=== PATIENT | male | born 1950 | race Two or more races ===

== ENCOUNTER → 2016-12-13 | Day surgery (SDC) | payer MEDICARE ==
--- NOTE | 2016-12-09 21:06 | HP ---
ADMITTING HISTORY AND PHYSICAL: DATE OF ADMISSION: 12/13/16 ADMITTING DIAGNOSES: 1. Hematuria. 2. Calculus, left proximal ureter. 3. Renal calculi. PLANNED PROCEDURE: Left retrograde, left stent insertion, possible ureteroscopy (possibly to be followed in the near future by lithotripsy). SURGEON: Dr. Mcpherson. HISTORY OF PRESENT ILLNESS: Nir Victor is a 66-year-old gentleman who had recently relocated to [place] from [place]. He had an evaluation for gross hematuria in the summer of 2015 in [place] [address] a CT scan and a cystoscopy. On CT scan at that time, he was noted to have nonobstructing bilateral renal calculi. 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 A sonogram was performed which revealed a 9.4-mm calculus in the proximal left ureter with left hydronephrosis and multiple bilateral renal calculi. PAST MEDICAL HISTORY: 1. Significant for HIV positivity. 2. Depression. 3. High cholesterol. PAST SURGICAL HISTORY: Significant for appendectomy and bilateral inguinal hernia repair. MEDICATIONS: On admission: 1. Abacavir 600 mg. 2. Lamivudine 300 mg 1 tablet daily. 3. Amlodipine 5 mg daily. 4. Bupropion 100 mg daily. 5. Epzicom 1 tablet daily. 6. Escitalopram 20 mg daily. 7. Fenofibrate 140 mg daily. 8. Nevirapine 200 mg 2 tablets daily. 9. NicoDerm patch. 10. Ranitidine 150 mg twice a day. 11. Simvastatin 40 mg daily. 12. Tamsulosin 0.4 mg daily. 13. Zetia 10 mg daily. ALLERGIES: No known drug allergies. SOCIAL HISTORY: Smoking history, he has a [id number] history and just quit about a month ago. PHYSICAL EXAMINATION GENERAL: Reveals a pleasant, middle-aged gentleman. VITAL SIGNS: Blood pressure is 160/92, pulse 71 per minute, oxygen saturation 98% on room air. LUNGS: Clear bilaterally. CARDIOVASCULAR: Regular rate and rhythm. S1, S2. ABDOMEN: Soft with mild left flank tenderness. IMPRESSION: A 66-year-old gentleman with a partially obstructing large calculus in the left proximal ureter and additional bilateral renal calculi. PLAN: Planned procedure is left retrograde, left stent insertion, possible ureteroscopy (possibly to be followed by shock wave lithotripsy in the near future). CC: Dr. Guzman; Dr. Wilfred Vargas; Dr. Mcpherson * [id number]/[facility] #: [id number] [facility]
[~2016-12-13] MED LIST: Buffered Lidocaine 1% SYR 3ML* 3 ML/SYR SYRINGE INTRADERM ONE; Chloroprocaine 2%* 20 ML VIAL ONE; Dexamethasone IV* 4 MG/ML 1 ML (4 MG) IV SLOW PU ONE; Dexamethasone IV* 4 MG/ML 1 ML (4 MG) ONE; Famotidine IV* 10 MG/ML 2 ML (20 mg) IV ONE; Famotidine IV* 10 MG/ML 2 ML (20 mg) ONE; Iohexol 180 (CONTRAST) 10 ML SDV IV ONE; Midazolam* 1 MG/ML 5 ML VIAL (5 MG) ONE; Ondansetron INJ* 2 MG/ML VIAL IV PRN; Ondansetron INJ* 2 MG/ML VIAL ONE; Propofol* 10 MG/ML 20 ML BTL IV PUSH ONE; cefTRIAXone(*) 2 GM ADDV.VIAL IVPB ONE; fentaNYL* 50 MCG/ML 2 ML VIAL (100 MCG VIAL) IV PRN; fentaNYL* 50 MCG/ML 2 ML VIAL (100 MCG VIAL) ONE; oxyCODONE/Acetamin 5/325 MG* TAB PO PRN
--- NOTE | 2016-12-13 11:14 | OP ---
DATE OF OPERATION: 12/13/2016 - [facility] DATE OF : 1950 - AGE: 66-year-old male. SURGEON: Dr. Eric Mcpherson. ANESTHESIOLOGIST: Dr. Potts. ANESTHESIA: Spinal. PRE-OP DIAGNOSIS: 1. Left hydronephrosis. 2. Calculus left proximal ureter. 3. Prostate enlargement. POST-OP DIAGNOSIS: 1. Left hydronephrosis. 2. Calculus left proximal ureter. 3. Prostate enlargement. OPERATIVE PROCEDURE: Cystoscopy, left retrograde pyelogram, left ureteral calculus manipulation and left stent insertion. STENT USED: 6 Cameroonian stent left ureter. INDICATIONS: Nir Victor is a 66-year-old gentleman who was evaluated and noted to have a 9 mm calculus in the proximal left ureter with left hydronephrosis. POSTOPERATIVE CONDITION: Stable. DESCRIPTION OF PROCEDURE: After induction of spinal anesthesia, the patient was placed in the dorsal lithotomy position. Sequential compression devices were in place and functioning. Initial cystoscopy reveal two soft strictures in the bulbar urethra which were easily dilated. The prostate is moderately enlarged and obstructing. The bladder was examined and was unremarkable. Left retrograde pyelogram revealed fullness of the left collecting system. The open ended catheter was advanced to the level of the renal pelvis and the calculus was manipulated proximally. A 6 Cameroonian stent was introduced and positioned under fluoroscopic monitoring with good proximal and distal positioning obtained. A 16 Cameroonian Holland was placed for temporary bladder drainage. The patient tolerated the procedure satisfactorily and was transferred back to the recovery area in stable condition. CC: Dr. Guzman * [id number]/[facility] #: [id number] [facility]
[2016-12-13 12:04] VITALS: BP 121/70
--- NOTE | 2016-12-13 13:48 | RAD ---
Indication: Left hydronephrosis. Fluoroscopic services provided for referring physician. Approximately 9 seconds of fluoroscopy time was used. Left ureteral stent is placed. IMPRESSION: Left ureteral stent is placed.
--- NOTE | 2016-12-13 14:02 | RAD ---
Indication: Postop retrograde and LEFT ureteral stent placement. Comparison: Intraoperative spot image of the same date. Technique: Supine abdomen Report: LEFT ureteral stent in place. Typical partial obscuration of the renal fossa due to bowel contents. No visualized stones at level of the renal fossa or along the course of the ureters. Unremarkable paraspinal soft tissue contours. Healed RIGHT fifth, sixth, and seventh rib fractures. IMPRESSION: LEFT ureteral stent in place.
== END | disposition home or self-care (01) ==
LOC: OR 08:34
PROVIDERS: ATTEND Urology
DX: N13.2 Hydronephrosis with renal and ureteral calculous obstruction (principal); Z21 Asymptomatic human immunodeficiency virus [HIV] infection status; F17.210 Nicotine dependence, cigarettes, uncomplicated; I10 Essential (primary) hypertension
CPT/HCPCS: 74000; 74420; C1876; J0696; J1100; J2250; J2400; J2405; J2704; J3010

== ENCOUNTER 2016-12-20 13:07 | Day surgery (SDC) | payer MEDICARE ==
[~2016-12-20 13:07] MED LIST changes: -Chloroprocaine 2%* 20 ML VIAL ONE; -Dexamethasone IV* 4 MG/ML 1 ML (4 MG) ONE; +DiMENhydriNATE IV* 50 MG/ML VIAL IV PUSH PRN; -Famotidine IV* 10 MG/ML 2 ML (20 mg) ONE; -Iohexol 180 (CONTRAST) 10 ML SDV IV ONE; +Midazolam* 1 MG/ML 2 ML VIAL (2 MG) ONE; -Midazolam* 1 MG/ML 5 ML VIAL (5 MG) ONE; -Ondansetron INJ* 2 MG/ML VIAL ONE; +PROCHLORPERAZINE INJ 5 MG/ML 2 ML VIAL IV PRN; -Propofol* 10 MG/ML 20 ML BTL IV PUSH ONE; -cefTRIAXone(*) 2 GM ADDV.VIAL IVPB ONE; -oxyCODONE/Acetamin 5/325 MG* TAB PO PRN
[2016-12-20] MEDS ORDERED: Dexamethasone IV* 4 MG/ML 1 ML (4 MG) ONE (13:25)
[2016-12-20] MEDS ORDERED: cefTRIAXone(*) 2 GM ADDV.VIAL IVPB ONE (13:26)
[2016-12-20] MEDS ORDERED: Famotidine IV* 10 MG/ML 2 ML (20 mg) ONE (13:26)
--- NOTE | 2016-12-20 13:40 | RAD ---
INDICATION: Shockwave lithotripsy. COMPARISON: Comparison is made with a prior KUB study from December 13, 2016. TECHNIQUE: Frontal supine films of the abdomen were obtained. FINDINGS: The small bowel and colon appear nondistended. There is a double-J stent catheter present on the left side. There are several small calcifications which project over the lower pole of the left kidney measuring up to 5 mm in size consistent with renal calculi. IMPRESSION: LEFT RENAL CALCULI, STATUS POST DOUBLE-J STENT CATHETER PLACEMENT.
[2016-12-20] MEDS ORDERED: fentaNYL* 50 MCG/ML 5 ML VIAL (250 MCG VIAL) ONE (15:28)
[2016-12-20] MEDS ORDERED: Furosemide IV* 10 MG/ML 2 ML VIAL (20 MG) ONE (15:34)
[2016-12-20] MEDS ORDERED: Ondansetron INJ* 2 MG/ML VIAL ONE (15:34)
[2016-12-20] MEDS ORDERED: Propofol* 10 MG/ML 20 ML BTL IV PUSH ONE (15:34)
[2016-12-20] MEDS ORDERED: Lidocaine 2% PF* 10 ML AMP ONE (15:34)
[2016-12-20] MEDS ORDERED: Ketorolac INJ* 30 MG/ML 1 ML VIAL ONE (15:34)
[2016-12-20 17:04] VITALS: BP 126/82
--- NOTE | 2016-12-21 09:52 | OP ---
DATE OF OPERATION: 12/20/16 - [facility] DATE OF : [birth year] - AGE: 66 years, male. SURGEON: Eric Mcpherson MD. ANESTHESIOLOGIST: Dr. Umana. ANESTHESIA: General. PRE-OP DIAGNOSIS: Left renal calculi. POST-OP DIAGNOSIS: Left renal calculi. OPERATIVE PROCEDURE: Shock wave lithotripsy of left renal calculi. COMPLICATIONS: None. POSTOPERATIVE CONDITION: Stable. INDICATIONS: Nir Victor is a 66-year-old gentleman who was evaluated and noted to have a calculus in the proximal left ureter with left hydronephrosis. He had undergone urgent left stent insertion and is now being brought in for lithotripsy. DESCRIPTION OF PROCEDURE: After induction of general anesthesia, the patient was placed on the lithotripsy table in supine position. There were two calculi in the lower pole area of the left kidney now which were visualized on fluoroscopy, and shockwave lithotripsy was commenced at a rate of 90 shocks per minute. After the initial 300 shocks, there was a pause in lithotripsy for several minutes in an effort to minimize any potential trauma to the kidney. Lithotripsy was then resumed and periodic imaging revealed good localization and fragmentation. A total of 1200 shocks were administered. The patient tolerated the procedure satisfactorily, and was transferred back to the recovery area in stable condition. CC: Dr. Guzman * [id number]/[facility] #: [id number] [facility]
== END 2016-12-20 17:27 | disposition home or self-care (01) ==
LOC: OR 13:07
PROVIDERS: ATTEND Urology
DX: N13.2 Hydronephrosis with renal and ureteral calculous obstruction (principal); Z87.891 Personal history of nicotine dependence; I10 Essential (primary) hypertension; Z21 Asymptomatic human immunodeficiency virus [HIV] infection status; G47.33 Obstructive sleep apnea (adult) (pediatric)
CPT/HCPCS: 74000; J0696; J1100; J1885; J1940; J2001; J2250; J2405; J2704; J3010

== ENCOUNTER 2017-05-20 13:48 | Emergency (ER) | payer MEDICARE ==
[2017-05-20] MEDS ORDERED: NS 0.9% 1000 ML* 1,000 ML IV ONE (16:05)
--- NOTE | 2017-05-20 16:49 | RAD ---
INDICATION: Fever, fatigue. Former tobacco use. Chronic obstructive pulmonary disease. COMPARISON: September 01, 2016 TECHNIQUE: Dual energy PA and routine lateral views of the chest were obtained. REPORT: Mild prominence of interstitial markings. Mildly elevated lung volumes. No focal pulmonary lesion, compelling alveolar consolidation, pleural effusion, pneumothorax. The heart, pulmonary vasculature, and mediastinal contours are unremarkable. Healed fractures of the RIGHT sixth and seventh ribs noted. No acute rib fracture evident. IMPRESSION: Stigmata of obstructive lung disease. No acute pulmonary or cardiac process evident.
[2017-05-20 18:06] VITALS: BP 137/86
[2017-05-20 18:48] LABS: Hematocrit 38 % (42-52); Mean Corpuscular HGB Conc 34 g/dl (31-36); Mean Corpuscular Hemoglobin 34 pg (27-31); Mean Corpuscular Volume 99 fL (80-94); Mean Platelet Volume 9 um3 (7.4-10.4); Red Blood Count 3.85 10^6/ul (4.0-5.4); Red Cell Distribution Width 14 % (10.5-15); White Blood Count 7.5 10^3/ul (3.5-10.8)
[2017-05-20 18:50] LABS: Comments Flag Yes
[2017-05-20 18:51] LABS: Add Diff/Slide Review? Slide Review Added
[2017-05-20 18:58] LABS: Albumin 3.7 g/dL (3.2-5.2); C Reactive Protein 139.36 mg/L (< 5.00); Calcium 8.9 mg/dL (8.6-10.3); EGFR African American 80.8 (>60); EGFR Non-African American 62.8 (>60); Globulin 2.4 g/dL (2-4); Potassium 3.9 mmol/L (3.5-5.0); Total Bilirubin 0.7 mg/dL (0.2-1.0); Total Protein 6.1 g/dL (6.4-8.9)
[2017-05-20 21:06] LABS: Erythrocyte Sed Rate 50 mm/Hr (0-40)
--- NOTE | 2017-05-21 09:57 | UC ---
Progress - Progress Note Progress Note: PLS CALL PT. LABS HAVE NON SPECIFIC ABNORMALITIES INCLUDING ELEVATED MARKERS OF INFLAMMATION, ELEVATED LFTS, BLOOD COUNT ABNORMALITIES. IF PT NOT FEELING BETTER WOULD RECOMMEND GOING TO ER. IF STABLE OR BETTER FOLLOW-UP WITH PCP EARLY NEXT WEEK FOR RE-EVAL. - NALLELY BYRNE MD
--- NOTE | 2017-05-25 07:18 | ED ---
Progress - Progress Note Progress Note: 7:17am Pt with + lyme serology - awaiting western blot results Pt was started on Doxy for lyme dx 05/21/17 #40 tabs recommend calling after WB results Course/Dx - Diagnoses Provider Diagnoses: Lyme disease
[2017-05-25 16:30] LABS: Lyme Disease IgG Ab WB Negative (Negative)
--- NOTE | 2017-05-25 21:18 | ED ---
Progress - Progress Note Progress Note: 7:17am Pt with + lyme serology - awaiting western blot results Pt was started on Doxy for lyme dx 05/21/17 #40 tabs recommend calling after WB results 05/25/17 9:17 PM WESTERN BLOT NEGATIVE. CONTINUE ABX AND FOLLOW UP WITH PCP. Course/Dx - Diagnoses Provider Diagnoses: Lyme disease
== END 2017-05-20 18:14 | disposition home or self-care (01) ==
LOC: UCEAST 13:48
DX: A69.20 Lyme disease, unspecified (principal); I10 Essential (primary) hypertension; J44.9 Chronic obstructive pulmonary disease, unspecified; Z87.891 Personal history of nicotine dependence
CPT/HCPCS: 36415; 71020; 80053; 81003; 85025; 85652; 86140; 86617; 86618; 87086; 87502; 96360; 99211; G0463

== ENCOUNTER 2017-05-21 13:54 | Emergency (ER) | payer MEDICARE ==
[2017-05-21] MEDS ORDERED: NS 0.9% 1000 ML* 1,000 ML IV ONE (15:53)
[2017-05-21 18:04] LABS: Hematocrit 36 % (42-52); Hemoglobin 12.1 g/dl (14.0-18.0); Mean Corpuscular HGB Conc 33 g/dl (31-36); Mean Corpuscular Hemoglobin 33 pg (27-31); Mean Corpuscular Volume 100 fL (80-94); Mean Platelet Volume 9 um3 (7.4-10.4); Red Blood Count 3.63 10^6/ul (4.0-5.4); Red Cell Distribution Width 14 % (10.5-15); White Blood Count 7.8 10^3/ul (3.5-10.8)
[2017-05-21 18:13] LABS: Albumin 3.4 g/dL (3.2-5.2); BUN/Creatinine Ratio 17.4 (8-20); C Reactive Protein 134.82 mg/L (< 5.00); Calcium 8.9 mg/dL (8.6-10.3); EGFR African American 86.8 (>60); EGFR Non-African American 67.5 (>60); Globulin 2.8 g/dL (2-4); Potassium 3.9 mmol/L (3.5-5.0); Total Bilirubin 0.6 mg/dL (0.2-1.0); Total Protein 6.2 g/dL (6.4-8.9)
[2017-05-21 18:15] LABS: Troponin I 0.01 ng/mL (<0.04)
[2017-05-21] MEDS ORDERED: DOXYcycline CAP(*) 100 MG PO ONE (18:21)
[2017-05-21 18:43] VITALS: BP 137/87
--- NOTE | 2017-05-21 18:50 | ED ---
Jose J Malhotra Auryana, scribed for Alexander Santo MD on 05/21/17 at 1552 . Complex/Multi-Sys Presentation - HPI Summary HPI Summary: 67 year old male presents with general illness for 1 week and rash starting today. He also c/o of "red-wine" urine yesterday at [facility]. He reports fever, chills, diaphoresis, malaise, diffuse myalgia, and decreased appetite. He denies any dizziness/lightheadedness, SOB, diarrhea, dysuria, U.T.I. symptoms, edema, and swollen lymph nodes. He reports possibility of tick bite but denies any tick removal. He denies any recent travel. Patient was advised to come to the ED yesterday due to abnormal labs - elevated LFTs and elevated inflammatory markers. PMHx is significant for HIV (+), HLD, and depression (on medication). - History Of Current Complaint Chief Complaint: EDWeakness Time Seen by Provider: 05/21/17 15:11 Hx Obtained From: Patient Onset/Duration: Gradual Onset, Lasting Weeks, Still Present Timing: Constant Severity Currently: Mild Severity Initially: Mild Associated Signs And Symptoms: Positive: Weakness - general, Decreased Oral Intake, Fever, Other - fever, chills, diaphoresis, malaise, diffuse myalgia, and decreased appetite. Negative: SOB, Cough, Chest Pain, Diarrhea Related History: Similar Episode/Diagnosed As: - Allergies/Home Medications Allergies/Adverse Reactions: Allergies Allergy/AdvReac Type Severity Reaction Status Date / Time No Known Allergies Allergy Verified 12/20/16 13:37 PMH/Surg Hx/FS Hx/Imm Hx Cardiovascular History: Reports: Hx Hypertension - ON MED Respiratory History: Reports: Hx Chronic Obstructive Pulmonary Disease (COPD) - NOTED 08/2016, Hx Sleep Apnea - WORK UP 5-6 WEEKS AGO, AWAITING RESULTS, Other Respiratory Problems/Disorders - POSSIBLE SLEEP APNEA Denies: Hx Asthma GI History: Reports: Hx Gastroesophageal Reflux Disease - ON MED, Hx Hiatal Hernia History: Reports: Hx Kidney Stones - CURRENTLY AND HX OF APRIL 2016,LEFT STENT 12/13/16 Sensory History: Reports: Hx Contacts or Glasses - GLASSES Denies: Hx Hearing Aid Opthamlomology History: Reports: Hx Contacts or Glasses - GLASSES Psychiatric History: Reports: Hx Anxiety - ON MED, Hx Depression - ON MED - Surgical History Surgery Procedure, Year, and Place: 1991 BILATERAL INGUINAL HERNIA REPAIR - [facility]. 1997 APPENDECTOMY - [place]. 11/2016 LEFT KIDNEY STONR STENT INSERTION. huiv positive Hx Anesthesia Reactions: No Infectious Disease History: No Infectious Disease History: Reports: Hx Hepatitis - HEP B OVER 30 YRS AGO, CARLA REPORTS CLEARED TO PT Denies: Hx Clostridium Difficile, Hx Human Immunodeficiency Virus (HIV), Hx of Known/Suspected MRSA, Hx Shingles, Hx Tuberculosis, Hx Known/Suspected VRE, Hx Known/Suspected VRSA, History Other Infectious Disease, Traveled Outside the [place] in Last 30 Days - Family History Known Family History: Positive: Cardiac Disease - [place] ( father), "heart problems" (mother), Respiratory Disease - COPD (MOTHER), Blood Disorder - LEUKEMIA (BROTHER), Other - COLON CANCER (FATHER) - Social History Alcohol Use: Rare Alcohol Amount: 1-3 DRINKS EVERY FEW MONTHS Substance Use Type: Reports: None Smoking Status (MU): Former Smoker Type: Cigarettes Amount Used/How Often: 1.5 PPD FOR 49 YEARS Length of Time of Smoking/Using Tobacco: 49 YRS Have You Smoked in the Last Year: Yes Review of Systems Positive: Fever, Chills, Fatigue, Skin Diaphoresis, Other - malaise Eyes: Negative ENT: Negative Cardiovascular: Negative Negative: Chest Pain Respiratory: Negative Negative: Shortness Of Breath, Cough Gastrointestinal: Negative Negative: Diarrhea Genitourinary: Negative Positive: no symptoms reported. Negative: dysuria, hematuria Positive: Myalgia - diffuse Positive: Rash Neurological: Negative All Other Systems Reviewed And Are Negative: Yes Physical Exam - Summary Physical Exam Summary: The patient is well-nourished in no acute distress and in no acute pain. The skin is warm and dry and skin color reflects adequate perfusion. There is a diffuse macular rash on the trunk and the bilateral arms. The rash is warm and some have a clearing center. HEENT: The head is normocephalic and atraumatic. The pupils are equal and reactive. The conjunctivae are clear and without drainage. Nares are patent and without drainage. Mouth reveals moist mucous membranes and the throat is without erythema and exudate. The external ears are intact. The ear canals are patent and without drainage. The tympanic membranes are intact. Neck is supple with full range of motion and non-tender. There are no carotid bruits. There is no neck vein distension. No cervical lymphadenopathy. Respiratory: Chest is non-tender. Lungs are clear to auscultation and breath sounds are symmetrical and equal. Cardiovascular: Heart is regular rate and rhythm. There is no murmur or rub auscultated. There is no peripheral edema and pulses are symmetrical and equal. Abdomen: The abdomen is soft and non-tender. There are normal bowel sounds heard in all four quadrants and there is no organomegaly palpated. Musculoskeletal: There is no back pain noted. Extremities are non-tender with full range of motion. There is good capillary refill. There is no peripheral edema or calf tenderness elicited. Neurological: Patient is alert and oriented to person, place and time. The patient has symmetrical motor strength in all four extremities. Cranial nerves are grossly intact. Deep tendon reflexes are symmetrical and equal in all four extremities. Psychiatric: The patient has an appropriate affect and does not exhibit any anxiety or depression. Triage Information Reviewed: Yes Vital Signs On Initial Exam: Initial Vitals Temp Pulse Resp BP Pulse Ox 99.5 F 92 17 137/81 96 05/21/17 14:17 05/21/17 14:17 05/21/17 14:17 05/21/17 14:17 05/21/17 14:17 Vital Signs Reviewed: Yes - Elena Coma Scale Coma Scale Total: 15 Diagnostics - Vital Signs Vital Signs Temp Pulse Resp BP Pulse Ox 05/21/17 15:00 93 125/75 93 05/21/17 14:39 96 98 05/21/17 14:37 128/78 05/21/17 14:17 99.5 F 92 17 137/81 96 - Laboratory Lab Results: Lab Results 05/21/17 05/21/17 05/21/17 Range/Units 17:45 17:45 17:45 WBC 7.8 (3.5-10.8) 10^3/ul RBC 3.63 L (4.0-5.4) 10^6/ul Hgb 12.1 L (14.0-18.0) g/dl Hct 36 L (42-52) % MCV 100 H (80-94) fL MCH 33 H (27-31) pg MCHC 33 (31-36) g/dl RDW 14 (10.5-15) % Plt Count 106 L (150-450) 10^3/ul MPV 9 (7.4-10.4) um3 Neut % (Auto) 64.5 (38-83) % Lymph % (Auto) 22.9 L (25-47) % Lagrange % (Auto) 9.0 (1-9) % Eos % (Auto) 2.6 (0-6) % Baso % (Auto) 1.0 (0-2) % Absolute Neuts (auto) 5.0 (1.5-7.7) 10^3/ul Absolute Lymphs (auto) 1.8 (1.0-4.8) 10^3/ul Absolute Monos (auto) 0.7 (0-0.8) 10^3/ul Absolute Eos (auto) 0.2 (0-0.6) 10^3/ul Absolute Basos (auto) 0.1 (0-0.2) 10^3/ul Absolute Nucleated RBC 0.01 10^3/ul Nucleated RBC % 0.1 INR (Anticoag Therapy) 1.04 (0.89-1.11) Sodium 137 (133-145) mmol/L Potassium 3.9 (3.5-5.0) mmol/L Chloride 109 (101-111) mmol/L Carbon Dioxide 22 (22-32) mmol/L Anion Gap 6 (2-11) mmol/L BUN 19 (6-24) mg/dL Creatinine 1.09 (0.67-1.17) mg/dL Est GFR ( Amer) 86.8 (>60) Est GFR (Non-Af Amer) 67.5 (>60) BUN/Creatinine Ratio 17.4 (8-20) Glucose 101 H (70-100) mg/dL Lactic Acid (0.5-2.0) mmol/L Calcium 8.9 (8.6-10.3) mg/dL Total Bilirubin 0.60 (0.2-1.0) mg/dL AST 61 H (13-39) U/L ALT 115 H (7-52) U/L Alkaline Phosphatase 144 H (34-104) U/L Troponin I 0.01 (<0.04) ng/mL C-Reactive Protein 134.82 H (< 5.00) mg/L Total Protein 6.2 L (6.4-8.9) g/dL Albumin 3.4 (3.2-5.2) g/dL Globulin 2.8 (2-4) g/dL Albumin/Globulin Ratio 1.2 (1-3) 05/21/17 Range/Units 17:45 WBC (3.5-10.8) 10^3/ul RBC (4.0-5.4) 10^6/ul Hgb (14.0-18.0) g/dl Hct (42-52) % MCV (80-94) fL MCH (27-31) pg MCHC (31-36) g/dl RDW (10.5-15) % Plt Count (150-450) 10^3/ul MPV (7.4-10.4) um3 Neut % (Auto) (38-83) % Lymph % (Auto) (25-47) % Lagrange % (Auto) (1-9) % Eos % (Auto) (0-6) % Baso % (Auto) (0-2) % Absolute Neuts (auto) (1.5-7.7) 10^3/ul Absolute Lymphs (auto) (1.0-4.8) 10^3/ul Absolute Monos (auto) (0-0.8) 10^3/ul Absolute Eos (auto) (0-0.6) 10^3/ul Absolute Basos (auto) (0-0.2) 10^3/ul Absolute Nucleated RBC 10^3/ul Nucleated RBC % INR (Anticoag Therapy) (0.89-1.11) Sodium (133-145) mmol/L Potassium (3.5-5.0) mmol/L Chloride (101-111) mmol/L Carbon Dioxide (22-32) mmol/L Anion Gap (2-11) mmol/L BUN (6-24) mg/dL Creatinine (0.67-1.17) mg/dL Est GFR ( Amer) (>60) Est GFR (Non-Af Amer) (>60) BUN/Creatinine Ratio (8-20) Glucose (70-100) mg/dL Lactic Acid 0.7 (0.5-2.0) mmol/L Calcium (8.6-10.3) mg/dL Total Bilirubin (0.2-1.0) mg/dL AST (13-39) U/L ALT (7-52) U/L Alkaline Phosphatase (34-104) U/L Troponin I (<0.04) ng/mL C-Reactive Protein (< 5.00) mg/L Total Protein (6.4-8.9) g/dL Albumin (3.2-5.2) g/dL Globulin (2-4) g/dL Albumin/Globulin Ratio (1-3) Result Diagrams: 05/21/17 17:45 05/21/17 17:45 Lab Statement: Any lab studies that have been ordered have been reviewed, and results considered in the medical decision making process. - EKG 15:43 EKG Interpretation: sinus rhythm @ 91 bpm, normal axis, poor airway progression , no STEMI. Re-Evaluation - Re-Evaluation First Eval Re-Evaluation Time: 18:18 - discussed results and plan of action Change: Unchanged Comment: recheecked rash was darker and more evident of EM with clearing center. the rash was more confluent. there was no necrotic center or vesicles. Complex Multi-Symp Course/Dx Assessment/Plan: 67 year old male presents with general illness for 1 week and rash starting today. He also c/o of "red-wine" urine yesterday at [facility]. He reports fever, chills, diaphoresis, malaise, diffuse myalgia, and decreased appetite. He denies any dizziness/lightheadedness, SOB, diarrhea, dysuria, U.T.I. symptoms, edema, and swollen lymph nodes. He reports possibility of tick bite but denies any tick removal. He denies any recent travel. Patient was advised to come to the ED yesterday due to abnormal labs - elevated LFTs and elevated inflammatory markers. PMHx is significant for HIV (+), HLD, and depression (on medication). In ED course, patient was given IV fluids. EKG shows sinus rhythm @ 91 bpm, normal axis, poor airway progression, no STEMI. Blood work shows RBC 3.63, Hgb 12.1, Hct 36, platelet count 106, INR 1.04, glucose 101, lactic acid 0.7, AST 61, ALT 115, Alk. Phos. 144, troponin 0.01, CRP 134.82, and total protein 6.2. On re-evaluation, blood work and EKG were discussed. Patient will be discharge with follow with PCP and doxycycline. Patient is agreeable with plan. Dx: lyme disease. - Diagnoses Differential Diagnoses/HQI/PQRI: Sepsis Provider Diagnoses: Lyme disease Discharge - Discharge Plan Condition: Stable Disposition: HOME Prescriptions: DOXYcycline CAP(*) [DOXYcycline 100MG CAP(*)] 100 mg PO BID #40 cap Patient Education Materials: Lyme Disease (ED), Doxycycline (By mouth) Referrals: Wes Guzman MD [Primary Care Provider] - 2 Days The documentation as recorded by the Jose J gant Auryana accurately reflects the service I personally performed and the decisions made by Gal ponce Drew, MD.
== END 2017-05-21 18:40 | disposition home or self-care (01) ==
LOC: ED 13:54
DX: A69.20 Lyme disease, unspecified (principal); F41.9 Anxiety disorder, unspecified; F32.9 Major depressive disorder, single episode, unspecified; K21.9 Gastro-esophageal reflux disease without esophagitis; E78.5 Hyperlipidemia, unspecified; B20 Human immunodeficiency virus [HIV] disease; J44.9 Chronic obstructive pulmonary disease, unspecified
CPT/HCPCS: 36415; 80053; 83605; 84484; 85025; 85610; 86140; 87040; 93005; 99282; A9270-GY

== ENCOUNTER 2017-06-29 17:16 | Emergency (ER) | payer MEDICARE ==
[2017-06-29 19:59] VITALS: BP 137/76
[2017-06-29] MEDS ORDERED: NS 0.9% 1000 ML* 1,000 ML IV ONE (20:23)
[2017-06-29 21:11] LABS: Hematocrit 43 % (42-52); Hemoglobin 14.7 g/dl (14.0-18.0); Mean Corpuscular HGB Conc 34 g/dl (31-36); Mean Corpuscular Hemoglobin 34 pg (27-31); Mean Corpuscular Volume 99 fL (80-94); Mean Platelet Volume 9 um3 (7.4-10.4); Red Blood Count 4.37 10^6/ul (4.0-5.4); Red Cell Distribution Width 16 % (10.5-15); White Blood Count 6.1 10^3/ul (3.5-10.8)
[2017-06-29 21:24] LABS: Urine Bilirubin Negative (Negative); Urine Glucose Negative (Negative); Urine Nitrite Negative (Negative)
[2017-06-29 21:26] LABS: Albumin 3.9 g/dL (3.2-5.2); Calcium 9.6 mg/dL (8.6-10.3); EGFR African American 95.9 (>60); EGFR Non-African American 74.5 (>60); Globulin 2.9 g/dL (2-4); Potassium 3.8 mmol/L (3.5-5.0); Total Bilirubin 4.1 mg/dL (0.2-1.0); Total Protein 6.8 g/dL (6.4-8.9)
--- NOTE | 2017-06-29 21:29 | RAD ---
Indication: Abdominal pain. History of cholelithiasis. History of fatty infiltration of the liver. Comparison: June 20, 2017 ultrasound. Technique: RIGHT upper quadrant ultrasound. Report: Appropriate direction flow in the portal and hepatic veins. 16 cm liver is increased in echogenicity. Negative for focal hepatic lesions. Mild intrahepatic biliary dilatation similar to the prior exam. Dilated common bile duct measuring up to 12 mm. No ductal stones visualized. Adequately distended gallbladder with upper normal 4 mm wall is remarkable for biliary sludge and small stones. Negative for pericholecystic fluid. Negative for sonographic Estes's sign. The pancreas appears atrophic and is remarkable for duct dilatation measuring up to 0.9 cm proximally. No pancreatic head mass or calcification visualized. The pancreatic tail is largely obscured due to bowel gas. Negative for ascites. 11.0 x 5.1 x 4.8 cm RIGHT kidney is unremarkable. IMPRESSION: 1. Fatty infiltration of the liver. 2. No significant change in intra and extrahepatic biliary dilatation of uncertain etiology. No obstructing stone or lesion is conspicuous. 3. Cholelithiasis and biliary sludge without compelling secondary findings to suggest acute cholecystitis.
--- NOTE | 2017-06-29 22:12 | RAD ---
INDICATION: Midsternal chest pain. Weakness, abdominal pain. Diarrhea. COPD. Hiatal hernia. COMPARISON: May 20, 2017 TECHNIQUE: Dual energy PA and routine lateral views of the chest were obtained. REPORT: Minimal prominence of the interstitial markings without change. No alveolar consolidation or focal pulmonary lesion. Negative for pleural effusions or pneumothorax. The heart, pulmonary vasculature, and mediastinal contours are unremarkable. Negative for free air beneath the diaphragm. Healed RIGHT sixth rib fracture. IMPRESSION: Stigmata of probable chronic obstructive pulmonary disease. No acute cardiopulmonary process evident.
[2017-06-29] MEDS ORDERED: Iohexol 300* (CONTRAST) 10 ML SDV IV ONE (22:41)
--- NOTE | 2017-06-30 06:31 | ED ---
Ab Malhotra Rebecca, scribed for CheyennericardoVito on 06/29/17 at 2002 . Abdominal Pain/Male - HPI Summary HPI Summary: Pt is a 67 y/o M who presents to ED c/o abdominal pain for 2 weeks. Pain is diffuse and initially severe, though it is now moderate, ranked 4/10. Sx tyically aggravated by food, but presently alleviated by saltine crackers. Additionally c/o N/V and "creamy white stools." Denies edema. Pt reports that he was evaluated by his PCP last week where "multiple tests" were done and [facility] this afternoon where he gave a stool sample and blood work. Reports his PCP called 4 nights ago to give him blood results of elevated LFTs. PMHx Hepatitis B which was treated 40 years ago and he has since been cleared. Recent Dx of Lyme Disease for which he was on Doxycycline BID for 3 weeks. - History of Current Complaint Chief Complaint: EDAbdPain Stated Complaint: ABD PAIN Time Seen by Provider: 06/29/17 19:59 Hx Obtained From: Patient Onset/Duration: Lasting Weeks - 2 weeks, Still Present Severity Currently: Moderate Pain Intensity: 4 Pain Scale Used: 0-10 Numeric Location: Diffuse Aggravating Factor(s): Food Alleviating Factor(s): Other: - Saltine crackers [employer] Associated Signs And Symptoms: Positive: Nausea, Vomiting, Other - "Creamy white stools" - Allergies/Home Medications Allergies/Adverse Reactions: Allergies Allergy/AdvReac Type Severity Reaction Status Date / Time No Known Allergies Allergy Verified 12/20/16 13:37 PMH/Surg Hx/FS Hx/Imm Hx Cardiovascular History: Reports: Hx Hypertension - ON MED Respiratory History: Reports: Hx Chronic Obstructive Pulmonary Disease (COPD) - NOTED 08/2016, Hx Sleep Apnea - WORK UP 5-6 WEEKS AGO, AWAITING RESULTS, Other Respiratory Problems/Disorders - POSSIBLE SLEEP APNEA Denies: Hx Asthma GI History: Reports: Hx Gastroesophageal Reflux Disease - ON MED, Hx Hiatal Hernia History: Reports: Hx Kidney Stones - CURRENTLY AND HX OF APRIL 2016,LEFT STENT 12/13/16 Sensory History: Reports: Hx Contacts or Glasses - GLASSES Denies: Hx Hearing Aid Opthamlomology History: Reports: Hx Contacts or Glasses - GLASSES Psychiatric History: Reports: Hx Anxiety - ON MED, Hx Depression - ON MED - Surgical History Surgery Procedure, Year, and Place: 1991 BILATERAL INGUINAL HERNIA REPAIR - [facility]. 1997 APPENDECTOMY - [place]. 11/2016 LEFT KIDNEY STONR STENT INSERTION. huiv positive Hx Anesthesia Reactions: No Infectious Disease History: No Infectious Disease History: Reports: Hx Hepatitis - HEP B OVER 30 YRS AGO, CARLA REPORTS CLEARED TO PT Denies: Hx Clostridium Difficile, Hx Human Immunodeficiency Virus (HIV), Hx of Known/Suspected MRSA, Hx Shingles, Hx Tuberculosis, Hx Known/Suspected VRE, Hx Known/Suspected VRSA, History Other Infectious Disease, Traveled Outside the in Last 30 Days - Family History Known Family History: Positive: Cardiac Disease - [place] ( father), "heart problems" (mother), Respiratory Disease - COPD (MOTHER), Blood Disorder - LEUKEMIA (BROTHER), Other - COLON CANCER (FATHER) - Social History Alcohol Use: Rare Alcohol Amount: 1-3 DRINKS EVERY FEW MONTHS Substance Use Type: Reports: None Smoking Status (MU): Former Smoker Type: Cigarettes Amount Used/How Often: 1.5 PPD FOR 49 YEARS Length of Time of Smoking/Using Tobacco: 49 YRS Have You Smoked in the Last Year: Yes Review of Systems Positive: Abdominal Pain - Diffuse, Vomiting, Nausea, Other - "creamy white stools" Negative: Edema All Other Systems Reviewed And Are Negative: Yes Physical Exam - Summary Physical Exam Summary: Appearance: No pain distress Skin: warm, dry, jaundiced Head/face: normal Eyes: EOMI, MALLIKA ENT: normal Neck: supple, nontender Respiratory: CTA, breath sounds present Cardiovascular: RRR, pulses symmetrical Abdomen: tender in the RUQ and RLQ, soft Bowel: present Musculoskeletal: normal, strength/ROM intact Neuro: normal, sensory motor intact, A&Ox3 Triage Information Reviewed: Yes Vital Signs On Initial Exam: Initial Vitals Temp Pulse Resp BP Pulse Ox 98.7 F 87 20 150/86 96 06/29/17 17:30 06/29/17 17:30 06/29/17 17:30 06/29/17 17:30 06/29/17 17:30 Vital Signs Reviewed: Yes - [place] Coma Scale Coma Scale Total: 15 Diagnostics - Vital Signs Vital Signs Temp Pulse Resp BP Pulse Ox 06/29/17 19:54 98.3 F 73 18 137/76 96 06/29/17 17:30 98.7 F 87 20 150/86 96 - Laboratory Result Diagrams: 06/29/17 21:00 06/29/17 21:00 Lab Statement: Any lab studies that have been ordered have been reviewed, and results considered in the medical decision making process. - Radiology CXR Xray Interpretation: No Acute Changes - Stigmata of probable chronic obstructive pulmonary disease. No acute cardiopulmonary process evident. ED physician reviewed radiology report and agrees. Radiology Interpretation Completed By: Radiologist - CT CT Abd/Pel CT Interpretation: Positive (See Comments) - 2 cm cystic focus in proximal pancreatic body, question intraductal papillary mucinous neoplasm, other cystic neoplasm, or focal pancreatic duct dilaatation. Moderate intra-and extrahepatic biliary dilatation. No visible onstructing strone or solid mass, but consider further evaluation with MRCP. Cholelithiasis and minimally dilated gallbladder, consider furhter evaluation with ultrasound. Small thinly encapsulated fat- containing focus in lef tlower quadrant near sigmoid colon, possibly an incidental lipoma or chonically scarred fat, but correlate clinically for alternative possibility of early epiploic appendagitis. Cystic foci bilateral kdineys and small nonobstructing stone on right. Top normal diameter small bowel left upper and left lower quadrants, normal variation or ileus more likely than partial obstruction. No diverticulitis, colitis, free fluid or free air. Appendix not seen. No pericecal inflammation to suggest acute appenditicits. Thickened bladder wall due to hypertrophy versus underdistention versus cystitis; correlate clinically. Small right hydrocele, incompletely seeen. ED physicain reviewed radiology report and agrees. CT Interpretation Completed By: Radiologist - Ultrasound No standard instances Ultrasound Interpretation: Positive (See Comments) - Gallbladder US: 1. Fatty infiltration of the liver. 2. No significant change in intra and extrahepatic biliary dilatation of uncertain etiology. No obstructing stone or lesion is conspicuous. 3. Cholelithiasis and biliary sludge without compelling secondary findings to suggest acute cholecystitis. ED physician reviewed radiology report and agrees. Ultrasound Interpretation Completed By: Radiologist - EKG 2057 Cardiac Rate: NL - 77 bpm EKG Rhythm: Sinus Rhythm EKG Interpretation: No acute changes Re-Evaluation - Re-Evaluation First Eval Re-Evaluation Time: 01:32 Comment: Discussed results and plan to admit thept. Pt expresses that he would not like to be admitted and wants ot be D/C to home. Risks explained to the pt. Abdominal Pain Fem Course/Dx - Course Assessment/Plan: Pt is a 67 y/o M who presents to ED c/o abdominal pain for 2 weeks. Pain is diffuse and initially severe, though it is now moderate, ranked 4 /10. Sx tyically aggravated by food, but presently alleviated by saltine crackers. Additionally c/o N/V and "creamy white stools." Denies edema. Pt reports that he was evaluated by his PCP last week where "multiple tests" were done and [facility] this afternoon where he gave a stool sample and blood work. Reports his PCP called 4 nights ago to give him blood results of elevated LFTs. PMHx Hepatitis B which was treated 40 years ago and he has since been cleared. Recent Dx of Lyme Disease for which he was on Doxycycline BID for 3 weeks. Gallbladder US and CT Abd/Pel findings above. EKG is sinus rhythm with no acute changes. In the ED course, pt was given fluids. Pt expresses that he does not want to be admitted and will signout AMA. Risks explained to the pt which he understands. Pt will sign out AMA with Dx of abdominal pain, abnormal LFTs, cholelithiasis, pancreatic mass and HIV. - Diagnoses Differential Diagnosis/HQI/PQRI: Appendicitis, Pancreatitis, Other - Cholecystitis Provider Diagnoses: Abdominal pain, Abnormal LFTs, Cholelithiasis, Pancreatic mass, HIV (human immunodeficiency virus infection) Discharge - Discharge Plan Condition: Fair Disposition: AGAINST MEDICAL ADVICE Patient Education Materials: Gallstones (ED), Acute Abdominal Pain (ED), HIV Infection (ED) The documentation as recorded by the Ab gant Rebecca accurately reflects the service I personally performed and the decisions made by , Vito Travis.
--- NOTE | 2017-06-30 07:44 | RAD ---
INDICATION: Right lower quadrant pain. Evaluate for acute appendicitis COMPARISON: None TECHNIQUE: Axial source images were obtained from the hemidiaphragms to the symphysis pubis following administration of oral and intravenous contrast. 131 mL Omnipaque 300 was utilized. Coronal and sagittal reconstructed images were acquired. Lung bases: The lung bases are clear. Liver: The liver is normal in size. There are no masses. There is intrahepatic and extrahepatic ductal dilatation. Gallbladder: The gallbladder is distended. There is cholelithiasis. There is no thickening of the gallbladder wall or pericholecystic fluid. Spleen: The spleen is normal in size. There are no masses. Pancreas: There is a 2 cm cystic mass in the head of pancreas. There is mild pancreatic ductal dilatation.. Adrenal glands: There is no evidence of adrenal mass. Kidneys: The kidneys are normal in size and position. There are prompt nephrograms and there is prompt excretion bilaterally. There are no renal parenchymal masses. There is no evidence of nephrolithiasis. Adenopathy: There is no evidence of adenopathy by size criteria. Fluid collections: There are no free or localized fluid collections. Vessels:There are no significant atherosclerotic changes involving the aorta. There is no focal aneurysm. The iliac vessels are normal in caliber. The IVC appears normal. GI tract: There are no acute CT bowel findings. There is no obstruction. The stomach and small bowel appear normal. The lower GI tract is normal. The cecum, ileocecal valve, and terminal ileum appear normal. There is appendectomy by surgical history. Pelvic organs: The prostate and seminal vesicles appear normal Bladder: The bladder wall appears trabeculated. Abdominal and pelvic soft tissues: The extraperitoneal abdominal and pelvic soft tissues appear normal.. Osseous structures: There are no acute osseous findings. There is spondylitic change of the thoracolumbar spine Other: None IMPRESSION: 1. 2 cm cystic mass of the pancreas. Cystic neoplasms excluded. Suggest MRCP/ERCP. 2. Mildly distended gallbladder with evidence of cholelithiasis. Intra and extrahepatic ductal dilatation. Mild pancreatic ductal dilatation. 3. Appendectomy by surgical history. 4. Trabeculated bladder wall.
== END 2017-06-30 01:44 | disposition left against medical advice (07) ==
LOC: ED 17:16
DX: R10.9 Unspecified abdominal pain (principal); R94.5 Abnormal results of liver function studies; K80.20 Calculus of gallbladder without cholecystitis without obstruction; B20 Human immunodeficiency virus [HIV] disease; K86.89 Other specified diseases of pancreas; K76.0 Fatty (change of) liver, not elsewhere classified
CPT/HCPCS: 36415; 71020; 74177; 76705; 80053; 81003; 83605; 83690; 84484; 85025; 85610; 85730; 93005; 99284; Q9967

== ENCOUNTER 2017-06-30 11:46 | Emergency (ER) | payer MEDICARE ==
--- NOTE | 2017-06-30 17:20 | ED ---
Abdominal Pain/Male - HPI Summary HPI Summary: Pt is a 67 y/o M who presents to ED c/o abdominal pain for 2 weeks. Pain is diffuse and initially severe, though it is now moderate, ranked 4/10. Sx typically aggravated by food, but presently alleviated by saltine crackers. Additionally c/o N/V and "creamy white stools." Denies edema. Pt reports that he was evaluated by his PCP last week where "multiple tests" were done and [facility] this afternoon where he gave a stool sample and blood work. Reports his PCP called 4 nights ago to give him blood results of elevated LFTs and to come to ER. PMHx Hepatitis B which was treated 40 years ago and he has since been cleared. Recent Dx of Lyme Disease for which he was on Doxycycline BID for 3 weeks. Hx of HIV. Patient was seen last night and left AMA stating he would return today to have follow up tests and be admitted. Still having the same symptoms, nothing new. Appears after looking at last nights labs and notes, patient has a pancreatic mass, abnormal elevation of LFTs, and cholelithiasis. Needs further tests including ERCP. - History of Current Complaint Chief Complaint: EDAbdPain Stated Complaint: ABNORMAL LABS Time Seen by Provider: 06/30/17 16:37 Hx Obtained From: Patient, Medical Records Onset/Duration: Sudden Onset, Lasting Weeks Timing: Constant Severity Initially: Mild Severity Currently: Mild Pain Intensity: 3 Pain Scale Used: 0-10 Numeric Location: Diffuse Radiates: No Character: Burning Aggravating Factor(s): Food Alleviating Factor(s): Nothing Associated Signs And Symptoms: Positive: Nausea - Allergies/Home Medications Allergies/Adverse Reactions: Allergies Allergy/AdvReac Type Severity Reaction Status Date / Time No Known Allergies Allergy Verified 06/30/17 16:24 Home Medications: Home Medications buPROPion TAB* [Wellbutrin TAB*] 100 mg PO QAM 06/30/17 [History Confirmed 06/30] PMH/Surg Hx/FS Hx/Imm Hx Cardiovascular History: Reports: Hx Hypertension - ON MED Respiratory History: Reports: Hx Chronic Obstructive Pulmonary Disease (COPD) - NOTED 08/2016, Hx Sleep Apnea - WORK UP 5-6 WEEKS AGO, AWAITING RESULTS, Other Respiratory Problems/Disorders - POSSIBLE SLEEP APNEA Denies: Hx Asthma GI History: Reports: Hx Gastroesophageal Reflux Disease - ON MED, Hx Hiatal Hernia History: Reports: Hx Kidney Stones - CURRENTLY AND HX OF APRIL 2016,LEFT STENT 12/13/16 Sensory History: Reports: Hx Contacts or Glasses - GLASSES Denies: Hx Hearing Aid Opthamlomology History: Reports: Hx Contacts or Glasses - GLASSES Psychiatric History: Reports: Hx Anxiety - ON MED, Hx Depression - ON MED - Surgical History Surgery Procedure, Year, and Place: 1991 BILATERAL INGUINAL [facility]ERNIA REPAIR - [facility]. 1997 APPENDECTOMY - [place]. 11/2016 LEFT KIDNEY STONR STENT INSERTION. huiv positive Hx Anesthesia Reactions: No - Immunization History Immunizations Up to Date: Yes Infectious Disease History: Yes Infectious Disease History: Reports: Hx Hepatitis - HEP B OVER 30 YRS AGO, [facility]LA REPORTS CLEARED TO PT Denies: Hx Clostridium Difficile, Hx Human Immunodeficiency Virus (HIV), Hx of Known/Suspected MRSA, Hx Shingles, Hx Tuberculosis, Hx Known/Suspected VRE, Hx Known/Suspected VRSA, History Other Infectious Disease, Traveled Outside the in Last 30 Days - Family History Known Family History: Positive: Cardiac Disease - [place] ( father), "heart problems" (mother), Respiratory Disease - COPD (MOTHER), Blood Disorder - LEUKEMIA (BROTHER), Other - COLON CANCER (FATHER) - Social History Alcohol Use: None Alcohol Amount: no drinking in over a year. Every tuesday small amt of wine Substance Use Type: Reports: None Smoking Status (MU): Current Every Day Smoker Type: Cigarettes Amount Used/How Often: 1.5 PPD FOR 49 YEARS Length of Time of Smoking/Using Tobacco: 49 YRS Have You Smoked in the Last Year: Yes Review of Systems Constitutional: Negative Cardiovascular: Negative Respiratory: Negative Positive: Abdominal Pain, Other - odd colored stool Genitourinary: Negative Positive: Rash All Other Systems Reviewed And Are Negative: Yes Physical Exam Triage Information Reviewed: Yes Vital Signs On Initial Exam: Initial Vitals Temp Pulse Resp BP Pulse Ox 99.0 F 84 20 150/92 96 06/30/17 12:12 06/30/17 12:12 06/30/17 12:12 06/30/17 12:12 06/30/17 12:12 Vital Signs Reviewed: Yes Appearance: Positive: Well-Appearing, No Pain Distress, Well-Nourished Skin: Positive: Warm, Skin Color Reflects Adequate Perfusion, Dry, Jaundiced - diffuse. Negative: Cold, Cyanosis @, Pale, Erythema @ Head/Face: Positive: Normal Head/Face Inspection Eyes: Positive: Conjunctiva Clear ENT: Positive: Normal ENT inspection, Hearing grossly normal, Pharynx normal, TMs normal Neck: Positive: Supple, Nontender, No Lymphadenopathy Respiratory/Lung Sounds: Positive: Clear to Auscultation, Breath Sounds Present. Negative: Rales, Rhonchi, Stridor, Wheezes Cardiovascular: Positive: Normal, RRR, Pulses are Symmetrical in both Upper and Lower Extremities. Negative: Murmur, Rub Abdomen Description: Positive: No Organomegaly, Soft, Other: - diffuse tenderness RUQ and RLQ. Negative: Bruit, CVA Tenderness (R), CVA Tenderness (L) , Distended, Guarding, Peritoneal Signs, Pulsatile Mass Bowel Sounds: Positive: Present Musculoskeletal: Positive: Normal, Strength/ROM Intact Neurological: Positive: Normal, Sensory/Motor Intact, Alert, Oriented to Person Place, Time Psychiatric: Positive: Normal - [place] Coma Scale Coma Scale Total: 15 Diagnostics - Vital Signs Vital Signs Temp Pulse Resp BP Pulse Ox 06/30/17 16:23 83 95 06/30/17 16:21 137/85 06/30/17 16:15 99.6 F 78 16 137/85 96 06/30/17 14:00 99.0 F 82 20 152/90 98 06/30/17 12:12 99.0 F 84 20 150/92 96 - Laboratory Result Diagrams: 06/30/17 18:45 06/30/17 18:45 Lab Statement: Any lab studies that have been ordered have been reviewed, and results considered in the medical decision making process. Re-Evaluation - Re-Evaluation First Eval Re-Evaluation Time: 19:00 Change: Improved - patient feeling ebtter after pain medication, aware of current plan and is in agreement. Abdominal Pain Fem Course/Dx - Course Course Of Treatment: repeat labs obtained to compare from last nights visit. spoke with Dr De León and Autumn AR[employer]URE [employer]IL WINDER who consulted patient and stated he needs to be transferred due to not having GI consultation here currently. Patient agrees with this plan and understands it appears he needs ERCP and possible stent due to labs, HPI and imaging results. Spoke with Joseph Reddy who accepted patient transfer at 7:45 pm. Will send all lab and imaging results along with Dr Travis provider report from last night visit. Further work up was obtianed at this visit due to already obtaining less than 24 hours. 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 Discharge - Discharge Plan Condition: Stable Disposition: TRANS HIGHER LVL OF CARE FAC Referrals: Wes Guzman MD [Primary Care Provider] -
[2017-06-30 19:02] LABS: Hematocrit 41 % (42-52); Hemoglobin 13.7 g/dl (14.0-18.0); Mean Corpuscular HGB Conc 34 g/dl (31-36); Mean Corpuscular Hemoglobin 33 pg (27-31); Mean Corpuscular Volume 98 fL (80-94); Mean Platelet Volume 9 um3 (7.4-10.4); Red Blood Count 4.15 10^6/ul (4.0-5.4); Red Cell Distribution Width 16 % (10.5-15); White Blood Count 6.2 10^3/ul (3.5-10.8)
[2017-06-30 19:13] LABS: Albumin 3.8 g/dL (3.2-5.2); BUN/Creatinine Ratio 19.8 (8-20); Calcium 9.6 mg/dL (8.6-10.3); EGFR African American 94.8 (>60); EGFR Non-African American 73.7 (>60); Globulin 2.9 g/dL (2-4); Potassium 3.8 mmol/L (3.5-5.0); Total Bilirubin 3.7 mg/dL (0.2-1.0); Total Protein 6.7 g/dL (6.4-8.9)
[2017-06-30] MEDS ORDERED: Morphine INJ* 4 MG/ML 1 ML SYRINGE IV ONE (19:25)
[2017-06-30] MEDS ORDERED: Ondansetron INJ* 2 MG/ML VIAL IV ONE (19:26)
[2017-06-30 21:07] VITALS: BP 141/86
--- NOTE | 2017-06-30 23:09 | CONS ---
CC: Dr. Guzman* HOSPITAL MEDICINE CONSULTATION REPORT: DATE OF CONSULT: 06/30/17 - EMERGENCY DEPT PRIMARY CARE PHYSICIAN: Dr. Guzman. REASON FOR CONSULTATION: Question regarding need for admission. HISTORY OF PRESENT ILLNESS: Mr. Victor is a 67-year-old male with past medical history of HIV, depression, high cholesterol, who presented to the hospital today with concern for abdominal pain. Mr. Victor states that he has had over 2 weeks of abdominal pain. He has had mild intermittent nausea with some dry heaves. He feels that the pain is worse with eating. He also reports white stools. He reports being in constant pain, generalized throughout his abdomen except when he is asleep. He did see his primary care physician, Dr. Guzman , on Tuesday of last week. He called on Tuesday to say that the LFTs were elevated and that he should come for further evaluation at the lab. He did that on Tuesday after and provided stool samples and had further lab work. The patient called Dr. Guzman's office to say that he was in pain and at that point, Dr. Guzman asked him to come to the emergency room yesterday. The patient was seen in the emergency room here showing persistent elevation in his LFTs. He also had a CT of the abdomen which showed a pancreatic cystic mass. The patient was encouraged to stay in the hospital for further evaluation and treatment. He decided to leave [place]. He returned today to hospital with agreeing to stay for admission if needed. PAST MEDICAL HISTORY: 1. HIV. 2. Depression. 3. Elevated cholesterol. 4. History of appendectomy. 5. History of double hernia. MEDICATIONS: 1. Acetylcysteine. 2. Vitamin D. 3. Coenzyme Q10. 4. Lexapro. 5. Flonase. 6. Multivitamin. 7. Viramune. 8. Lovaza. 9. Ranitidine. 10. Amlodipine. 11. Wellbutrin. 12. Epzicom. ALLERGIES: No known drug allergies. FAMILY HISTORY: His mother related to COPD and heart disease. His father related to colon cancer, but ultimately had a heart attack. SOCIAL HISTORY: The patient quit smoking months ago but resumed and has been smoking about a pack a day in the past two weeks. No reported of alcohol or drug use. He states that his sister, Noa, would be the healthcare proxy. REVIEW OF SYSTEMS: A 14-point review of systems was completed with Mr. Victor and all those not mentioned above were negative. PHYSICAL EXAMINATION: Vital Signs: Temperature 99.6, heart rate 75, respiratory rate 16, O2 saturation 94% on room air, blood pressure 157/88. General: Mr. Victor is sitting in the bed. He is in no acute distress. Neuro : He is alert and oriented x3. He moves all extremities equally. There is no facial asymmetry or focal weakness. Heart: S1, S2. No murmur, rub, gallop and regular. Lungs are clear to auscultation bilaterally with no accessory muscle use and good aeration. The abdomen is soft. There is generalized tenderness but there is no rebound. There is no guarding. Bowel sounds are positive. Extremities: No cyanosis or edema. Skin is intact. DIAGNOSTIC STUDIES/LAB DATA: WBC 6.2, hemoglobin 13.7, hematocrit 41, platelet count 112,000. Sodium 138, potassium 3.8, chloride 107, serum bicarbonate 24, BUN 20, creatinine 1.01, glucose 105. T-bili 3.7. AST 111, ALT 269, alk phos 439. The patient's CT abdomen and pelvis from 06/29/17 is read as follows: "2 cm cystic mass in the pancreas, cystic neoplasm is excluded suggest MRCP, ERCP. Mildly distended gallbladder with evidence of cholelithiasis. Intra and extrahepatic ductal dilatation. Mild pancreatic ductal dilatation. Appendectomy by surgical history, trabeculated bladder wall." ASSESSMENT: Mr. Victor is a 67-year-old male with past medical history of hypertension and HIV, who presents to the hospital today with concern for persistent elevation ain in LFTs with abdominal pain. The patient has been noted to have a cystic mass on the pancreas per CT of the abdomen and pelvis from yesterday. Unfortunately, we do not have gastroenterological coverage today and therefore cannot obtain a GI consult. I suspect that the patient likely would need an ERCP, possible placement of a stent, and biopsy, but I cannot review this with GI and feel that the patient would better served at a tertiary care facility where GI coverage is available and he could have definitive procedure. I discussed this with the emergency room providers and they will be seeking to transfer Mr. Victor out this evening for treatment. TIME SPENT: Approximately 60 minutes were spent on the consultation of the patient, more than half the time spent with the patient at the bedside reviewing the events leading up to this hospitalization, performing the physical examination, and reviewing my plan of care. BASHIR STEPHENSON NP [id number]/[facility] #: [id number] SHANNAN
== END 2017-06-30 21:38 | disposition short-term general hospital (02) ==
LOC: ED 11:46
DX: R10.9 Unspecified abdominal pain (principal); R94.5 Abnormal results of liver function studies; B20 Human immunodeficiency virus [HIV] disease; R11.0 Nausea; F17.210 Nicotine dependence, cigarettes, uncomplicated; K80.20 Calculus of gallbladder without cholecystitis without obstruction
CPT/HCPCS: 36415; 80053; 85025; 96374; 96375; 99284; J2270; J2405

== ENCOUNTER 2017-08-03 02:02 | Emergency (ER) | payer MEDICARE ==
[2017-08-03] MEDS ORDERED: Ondansetron INJ* 2 MG/ML VIAL IV ONE (03:02)
[2017-08-03] MEDS ORDERED: HYDROmorphone INJ* 1 MG/ML CARPUJECT SYRINGE IV ONE (03:02)
[2017-08-03] MEDS ORDERED: NS 0.9% 1000 ML* 2,000 ML IV ONE (03:02)
[2017-08-03] MEDS ORDERED: HYDROmorphone INJ* 2 MG/ML CARPUJECT SYRINGE IV SLOW PU ONE ×2 (03:18→05:29)
[2017-08-03 03:37] LABS: Ammonia 47 mol/L (16-53)
[2017-08-03 03:40] LABS: Urine Bacteria Absent (Absent); Urine Bilirubin Negative (Negative); Urine Glucose Negative (Negative); Urine Nitrite Negative (Negative)
[2017-08-03 03:41] LABS: Albumin 3.7 g/dL (3.2-5.2); BUN/Creatinine Ratio 16.7 (8-20); C Reactive Protein 11.6 mg/L (< 5.00); EGFR African American 77.7 (>60); EGFR Non-African American 60.4 (>60); Globulin 2.6 g/dL (2-4); Magnesium 2.1 mg/dL (1.9-2.7); Potassium 3.8 mmol/L (3.5-5.0); Total Bilirubin 1.7 mg/dL (0.2-1.0); Total Protein 6.3 g/dL (6.4-8.9)
[2017-08-03 03:43] LABS: B Type Natriuretic Peptide 16 pg/mL
[2017-08-03 03:45] LABS: Hematocrit 38 % (42-52); Mean Corpuscular HGB Conc 34 g/dl (31-36); Mean Corpuscular Hemoglobin 34 pg (27-31); Mean Corpuscular Volume 99 fL (80-94); Mean Platelet Volume 8 um3 (7.4-10.4); Red Blood Count 3.84 10^6/ul (4.0-5.4); Red Cell Distribution Width 16 % (10.5-15); White Blood Count 9.1 10^3/ul (3.5-10.8)
[2017-08-03] MEDS ORDERED: Iohexol 300* (CONTRAST) 10 ML SDV IV ONE (05:23)
--- NOTE | 2017-08-03 07:30 | ED ---
Aime Malhotra Benjamin, scribed for Sumit Parker MD on 08/03/17 at 0239 . Abdominal Pain/Male - HPI Summary HPI Summary: 67yo male who was dxed with Pancreatic CA 1 month ago presents with sudden onset of diffuse abdominal pain since 10pm last night. Pain is sharp, and is 7/ 10. Pt states that this is the first time he had abdominal pain since his pancreatic CA dx 1 month ago. Pt has a biliary stent put in and has appointments scheduled for chemo with Dr. Beard. Denies N/V/D, or constipation. - History of Current Complaint Chief Complaint: EDAbdPain Stated Complaint: STOMACHE PAIN/UPPER ABD PAIN Hx Obtained From: Patient Onset/Duration: Sudden Onset, Lasting Hours, Still Present Timing: Constant, Lasting Hours Severity Initially: Moderate Severity Currently: Moderate Pain Intensity: 7 Pain Scale Used: 0-10 Numeric Location: Diffuse Radiates: No Character: Sharp Aggravating Factor(s): Nothing Alleviating Factor(s): Nothing Associated Signs And Symptoms: Positive: Negative. Negative: Constipation, Nausea, Vomiting, Diarrhea - Allergies/Home Medications Allergies/Adverse Reactions: Allergies Allergy/AdvReac Type Severity Reaction Status Date / Time No Known Allergies Allergy Verified 08/03/17 02:11 PMH/Surg Hx/FS Hx/Imm Hx Cardiovascular History: Reports: Hx Hypertension - ON MED Respiratory History: Reports: Hx Chronic Obstructive Pulmonary Disease (COPD) - NOTED 08/2016, Hx Sleep Apnea - WORK UP 5-6 WEEKS AGO, AWAITING RESULTS, Other Respiratory Problems/Disorders - POSSIBLE SLEEP APNEA Denies: Hx Asthma GI History: Reports: Hx Gastroesophageal Reflux Disease - ON MED, Hx Hiatal Hernia History: Reports: Hx Kidney Stones - CURRENTLY AND HX OF APRIL 2016,LEFT STENT 12/13/16 Sensory History: Reports: Hx Contacts or Glasses - GLASSES Denies: Hx Hearing Aid Opthamlomology History: Reports: Hx Contacts or Glasses - GLASSES Psychiatric History: Reports: Hx Anxiety - ON MED, Hx Depression - ON MED - Surgical History Surgery Procedure, Year, and Place: 1991 BILATERAL INGUINAL HERNIA REPAIR - [facility]. 1997 APP[place]DECTOMY - [place]. 11/2016 LEFT KIDNEY STONR STENT INSERTION. huiv positive Hx Anesthesia Reactions: No Infectious Disease History: Yes Infectious Disease History: Reports: Hx Hepatitis - HEP B OVER 30 YRS AGO, CARLA REPORTS CLEARED TO PT Denies: Hx Clostridium Difficile, Hx Human Immunodeficiency Virus (HIV), Hx of Known/Suspected MRSA, Hx Shingles, Hx Tuberculosis, Hx Known/Suspected VRE, Hx Known/Suspected VRSA, History Other Infectious Disease, Traveled Outside the [place] in Last 30 Days - Family History Known Family History: Positive: Cardiac Disease - [place] ( father), "heart problems" (mother), Respiratory Disease - COPD (MOTHER), Blood Disorder - LEUKEMIA (BROTHER), Other - COLON CANCER (FATHER) - Social History Alcohol Use: None Alcohol Amount: no drinking in over a year. Every tuesday small amt of wine Substance Use Type: Reports: None Smoking Status (MU): Current Every Day Smoker Type: Cigarettes Amount Used/How Often: 1.5 PPD FOR 49 YEARS Length of Time of Smoking/Using Tobacco: 49 YRS Have You Smoked in the Last Year: Yes Review of Systems Constitutional: Negative Eyes: Negative ENT: Negative Cardiovascular: Negative Respiratory: Negative Gastrointestinal: Negative Genitourinary: Negative Musculoskeletal: Negative Skin: Negative Neurological: Negative Psychological: Normal All Other Systems Reviewed And Are Negative: Yes Physical Exam Triage Information Reviewed: Yes Vital Signs On Initial Exam: Initial Vitals Temp Pulse Resp BP Pulse Ox 97.5 F 92 16 148/86 99 08/03/17 02:05 08/03/17 02:05 08/03/17 02:05 08/03/17 02:05 08/03/17 02:05 Vital Signs Reviewed: Yes Appearance: Positive: Well-Appearing, No Pain Distress, Well-Nourished Skin: Positive: Warm, Skin Color Reflects Adequate Perfusion, Dry Head/Face: Positive: Normal Head/Face Inspection Eyes: Positive: EOMI, MALLIKA ENT: Positive: Normal ENT inspection Neck: Positive: Supple, Nontender Respiratory/Lung Sounds: Positive: Clear to Auscultation, Breath Sounds Present Cardiovascular: Positive: RRR, Pulses are Symmetrical in both Upper and Lower Extremities Abdomen Description: Positive: Soft. Negative: Nontender - mild diffuse abdominal tenderness Bowel Sounds: Positive: Hypoactive Musculoskeletal: Positive: Strength/ROM Intact Neurological: Positive: Sensory/Motor Intact, Alert, Oriented to Person Place, Time Psychiatric: Positive: Affect/Mood Appropriate Diagnostics - Vital Signs Vital Signs Temp Pulse Resp BP Pulse Ox 08/03/17 02:05 97.5 F 92 16 148/86 99 - Laboratory Lab Results: Lab Results 08/03/17 08/03/17 08/03/17 Range/Units 02:38 03:05 03:05 WBC (3.5-10.8) 10^3/ul RBC (4.0-5.4) 10^6/ul Hgb (14.0-18.0) g/dl Hct (42-52) % MCV (80-94) fL MCH (27-31) pg MCHC (31-36) g/dl RDW (10.5-15) % Plt Count (150-450) 10^3/ul MPV (7.4-10.4) um3 Neut % (Auto) (38-83) % Lymph % (Auto) (25-47) % Independence % (Auto) (1-9) % Eos % (Auto) (0-6) % Baso % (Auto) (0-2) % Absolute Neuts (auto) (1.5-7.7) 10^3/ul Absolute Lymphs (auto) (1.0-4.8) 10^3/ul Absolute Monos (auto) (0-0.8) 10^3/ul Absolute Eos (auto) (0-0.6) 10^3/ul Absolute Basos (auto) (0-0.2) 10^3/ul Absolute Nucleated RBC 10^3/ul Nucleated RBC % INR (Anticoag Therapy) 0.97 (0.89-1.11) APTT 29.0 (26.0-36.3) seconds Sodium (133-145) mmol/L Potassium (3.5-5.0) mmol/L Chloride (101-111) mmol/L Carbon Dioxide (22-32) mmol/L Anion Gap (2-11) mmol/L BUN (6-24) mg/dL Creatinine (0.67-1.17) mg/dL Est GFR ( Amer) (>60) Est GFR (Non-Af Amer) (>60) BUN/Creatinine Ratio (8-20) Glucose (70-100) mg/dL Lactic Acid (0.5-2.0) mmol/L Calcium (8.6-10.3) mg/dL Magnesium (1.9-2.7) mg/dL Total Bilirubin (0.2-1.0) mg/dL AST (13-39) U/L ALT (7-52) U/L Alkaline Phosphatase (34-104) U/L Ammonia 47 (16-53) mol/L Total Creatine Kinase (10-223) U/L CK-MB (CK-2) (0.6-6.3) ng/mL C-Reactive Protein (< 5.00) mg/L B-Natriuretic Peptide 16 ( - 100) pg/mL Total Protein (6.4-8.9) g/dL Albumin (3.2-5.2) g/dL Globulin (2-4) g/dL Albumin/Globulin Ratio (1-3) Lipase (11.0-82.0) U/L Urine Color Yellow Urine Appearance Cloudy Urine pH 7.0 (5-9) Ur Specific [place] 1.013 (1.010-1.030) Urine Protein Negative (Negative) Urine Ketones Negative (Negative) Urine Blood Negative (Negative) Urine Nitrate Negative (Negative) Urine Bilirubin Negative (Negative) Urine Urobilinogen Negative (Negative) Ur Leukocyte Esterase Trace H (Negative) Urine WBC (Auto) 1+(6-10/hpf) H (Absent) Urine RBC (Auto) 1+(3-5/hpf) H (Absent) Ur Squamous Epith Cells Present H (Absent) Urine Bacteria Absent (Absent) Urine Glucose Negative (Negative) 08/03/17 08/03/17 08/03/17 Range/Units 03:05 03:05 03:05 WBC 9.1 (3.5-10.8) 10^3/ul RBC 3.84 L (4.0-5.4) 10^6/ul Hgb 13.0 L (14.0-18.0) g/dl Hct 38 L (42-52) % MCV 99 H (80-94) fL MCH 34 H (27-31) pg MCHC 34 (31-36) g/dl RDW 16 H (10.5-15) % Plt Count 125 L (150-450) 10^3/ul MPV 8 (7.4-10.4) um3 Neut % (Auto) 52.8 (38-83) % Lymph % (Auto) 32.5 (25-47) % Independence % (Auto) 10.3 H (1-9) % Eos % (Auto) 3.5 (0-6) % Baso % (Auto) 0.9 (0-2) % Absolute Neuts (auto) 4.8 (1.5-7.7) 10^3/ul Absolute Lymphs (auto) 3.0 (1.0-4.8) 10^3/ul Absolute Monos (auto) 0.9 H (0-0.8) 10^3/ul Absolute Eos (auto) 0.3 (0-0.6) 10^3/ul Absolute Basos (auto) 0.1 (0-0.2) 10^3/ul Absolute Nucleated RBC 0 10^3/ul Nucleated RBC % 0 INR (Anticoag Therapy) (0.89-1.11) APTT (26.0-36.3) seconds Sodium 137 (133-145) mmol/L Potassium 3.8 (3.5-5.0) mmol/L Chloride 106 (101-111) mmol/L Carbon Dioxide 25 (22-32) mmol/L Anion Gap 6 (2-11) mmol/L BUN 20 (6-24) mg/dL Creatinine 1.20 H (0.67-1.17) mg/dL Est GFR ( Amer) 77.7 (>60) Est GFR (Non-Af Amer) 60.4 (>60) BUN/Creatinine Ratio 16.7 (8-20) Glucose 127 H (70-100) mg/dL Lactic Acid 1.0 (0.5-2.0) mmol/L Calcium 9.0 (8.6-10.3) mg/dL Magnesium 2.1 (1.9-2.7) mg/dL Total Bilirubin 1.70 H (0.2-1.0) mg/dL AST 25 (13-39) U/L ALT 42 (7-52) U/L Alkaline Phosphatase 143 H (34-104) U/L Ammonia (16-53) mol/L Total Creatine Kinase 73 (10-223) U/L CK-MB (CK-2) 2.1 (0.6-6.3) ng/mL C-Reactive Protein 11.60 H (< 5.00) mg/L B-Natriuretic Peptide ( - 100) pg/mL Total Protein 6.3 L (6.4-8.9) g/dL Albumin 3.7 (3.2-5.2) g/dL Globulin 2.6 (2-4) g/dL Albumin/Globulin Ratio 1.4 (1-3) Lipase 351 H (11.0-82.0) U/L Urine Color Urine Appearance Urine pH (5-9) Ur Specific [place] (1.010-1.030) Urine Protein (Negative) Urine Ketones (Negative) Urine Blood (Negative) Urine Nitrate (Negative) Urine Bilirubin (Negative) Urine Urobilinogen (Negative) Ur Leukocyte Esterase (Negative) Urine WBC (Auto) (Absent) Urine RBC (Auto) (Absent) Ur Squamous Epith Cells (Absent) Urine Bacteria (Absent) Urine Glucose (Negative) Result Diagrams: 08/03/17 03:05 08/03/17 03:05 Lab Statement: Any lab studies that have been ordered have been reviewed, and results considered in the medical decision making process. - CT CT W A/P CT Interpretation: Positive (See Comments) - moderate pneumobilia and mild pancreatitis s/p CBD stent placement. The known pancreatic tumor is not clearly visualized. Punctuate right renal stones. CT Interpretation Completed By: Radiologist - ED physician has reviewed this radiology report and agrees. Abdominal Pain Fem Course/Dx - Course Course Of Treatment: Reviewed pts medication and allergy lists. High blood pressure noted. PAIN IMPROVED WITH DILAUDID IN ED. DISCUSSED RESULTS WITH PATIENT. DISCUSSED ADMISSION WITH PATIENT. HE PREFERS TO GO HOME WITH PAIN MEDICATION AND F/U WITH DR BEARD SCHEDULED ON 08/05/17. - Diagnoses Provider Diagnoses: Pancreatitis, Abdominal pain Discharge - Discharge Plan Condition: Stable Disposition: HOME Prescriptions: HYDROmorphone TAB* [Dilaudid TAB*] 2 mg PO Q4H PRN #20 tab MDD 6 PRN Reason: Pain Patient Education Materials: Pancreatitis (ED), Abdominal Pain (ED) Referrals: Wes Guzman MD [Primary Care Provider] - Additional Instructions: FOLLOW UP WITH DR BEARD SCHEDULED ON 08/05/17. RETURN TO THE EMERGENCY DEPARTMENT FOR ANY WORSENING OF YOUR CONDITION; PAIN, FEVER, YOU FEEL ILL, VOMITING OR QUESTIONS OR CONCERNS. The documentation as recorded by the Aime gant Benjamin accurately reflects the service I personally performed and the decisions made by , Sumit Parker MD.
[2017-08-03 07:38] VITALS: BP 113/72
--- NOTE | 2017-08-03 09:06 | RAD ---
Indication: Pancreatic carcinoma with diffuse abdominal pain. Contrast: Administered 124.4 ml of OMNIPAQUE 300 mg/ml. CT of the abdomen and pelvis was performed after oral and IV contrast administration. Coronal and sagittal reconstructed images were obtained. The lung bases demonstrate no pleural fluid, nodules or masses. Heart is of normal size without evidence of pericardial effusion. The liver is normal in size. Pneumobilia is noted. A common duct stent is noted. No hepatic lesions are noted. The mass in the pancreatic head is not definitively identified, although a cystic structure is noted in the neck. The spleen is normal in size. No adrenal masses are noted. The kidneys demonstrate symmetric nephrograms with cortical cysts in both kidneys. Atherosclerotic aorta is noted. No retroperitoneal lymphadenopathy is noted. CT of the pelvis demonstrates no retroperitoneal or pelvic lymphadenopathy. The urinary bladder is otherwise unremarkable. No hernias are identified. No dilated loops of bowel are noted. The colon is filled with stool. The urinary bladder is unremarkable. No hernias are noted. IMPRESSION: Pneumobilia and biliary stent in place. Pancreatic cyst is noted in the neck of the pancreas with pancreatic duct dilatation. Diverticulosis without evidence of diverticulitis.
== END 2017-08-03 08:08 | disposition home or self-care (01) ==
LOC: ED 02:02
DX: K85.90 Acute pancreatitis without necrosis or infection, unspecified (principal)
CPT/HCPCS: 36415; 74177; 80053; 81003; 81015; 82140; 82550; 82553; 83605; 83690; 83735; 83880; 85025; 85610; 85730; 86140; 87086; 99283; J1170; J2405; Q9967

== ENCOUNTER 2017-09-18 00:07 | Emergency (ER) | payer MEDICARE ==
[2017-09-18] MEDS ORDERED: Morphine INJ* 4 MG/ML 1 ML CARPUJECT IV ONE (00:28)
[2017-09-18] MEDS ORDERED: Ondansetron INJ* 2 MG/ML VIAL IV ONE (00:28)
[2017-09-18] MEDS ORDERED: NS 0.9% 1000 ML* 1,000 ML IV ONE (00:28)
[2017-09-18 01:29] LABS: Hematocrit 43 % (42-52); Hemoglobin 14.2 g/dl (14.0-18.0); Mean Corpuscular HGB Conc 33 g/dl (31-36); Mean Corpuscular Hemoglobin 33 pg (27-31); Mean Corpuscular Volume 99 fL (80-94); Mean Platelet Volume 8 um3 (7.4-10.4); Red Cell Distribution Width 15 % (10.5-15); White Blood Count 9.1 10^3/ul (3.5-10.8)
[2017-09-18 01:33] LABS: Add Diff/Slide Review? Slide Review Added; Comments Flag Yes
[2017-09-18 01:43] LABS: Albumin 3.9 g/dL (3.2-5.2); BUN/Creatinine Ratio 11.7 (8-20); Calcium 9.4 mg/dL (8.6-10.3); EGFR African American 77.7 (>60); EGFR Non-African American 60.4 (>60); Globulin 2.4 g/dL (2-4); Potassium 3.7 mmol/L (3.5-5.0); Total Bilirubin 0.5 mg/dL (0.2-1.0); Total Protein 6.3 g/dL (6.4-8.9)
[2017-09-18 01:44] LABS: Troponin I 0.01 ng/mL (<0.04)
[2017-09-18] MEDS ORDERED: Iodixanol* (CONTRAST) 320 MG/ML 100 ML SDV IV ONE (02:17)
[2017-09-18 03:48] VITALS: BP 136/85
--- NOTE | 2017-09-18 06:41 | ED ---
Abril Malhotra Thomas, scribed for Vito Travis on 09/18/17 at 0033 . Abdominal Pain/Male - HPI Summary HPI Summary: Pt is a 67 y/o M presenting to the ED with c/o R-sided abdominal pain that began yesterday. Symptoms include nausea and vomiting. Pt reports he vomited 4x today. Pt denies diarrhea, CP, SOB. The patient has been taking compazine, Zofran, and oxycodone, but he is unable to keep anything down. PMHx includes pancreatic cancer and the patient is scheduled for his third chemotherapy appointment tomorrow. His first chemotherapy appointment was 3 weeks ago. - History of Current Complaint Chief Complaint: EDAbdPain Stated Complaint: NAUSEA/VOMITING Time Seen by Provider: 09/18/17 00:22 Hx Obtained From: Patient Onset/Duration: Sudden Onset, Lasting Days - 2, Still Present Timing: Intermittent Severity Currently: Mild Pain Intensity: 6 Pain Scale Used: 0-10 Numeric Location: Other - R-sided Associated Signs And Symptoms: Positive: Nausea, Vomiting, Other - Negative: SOB. Negative: Fever, Chest Pain, Diarrhea - Allergies/Home Medications Allergies/Adverse Reactions: Allergies Allergy/AdvReac Type Severity Reaction Status Date / Time No Known Allergies Allergy Verified 08/15/17 14:04 PMH/Surg Hx/FS Hx/Imm Hx Previously Healthy: No Endocrine/Hematology History: Denies: Hx Diabetes Cardiovascular History: Reports: Hx Hypertension - ON MED Respiratory History: Reports: Hx Chronic Obstructive Pulmonary Disease (COPD) - NOTED 08/2016, Hx Sleep Apnea - WORK UP 5-6 WEEKS AGO, AWAITING RESULTS, Other Respiratory Problems/Disorders - POSSIBLE SLEEP APNEA Denies: Hx Asthma GI History: Reports: Hx Gastroesophageal Reflux Disease - ON MED, Hx Hiatal Hernia History: Reports: Hx Kidney Stones - CURRENTLY AND HX OF APRIL 2016,LEFT STENT 12/13/16 Denies: Hx Dialysis, Hx Renal Disease Sensory History: Reports: Hx Contacts or Glasses - GLASSES Denies: Hx Hearing Aid Opthamlomology History: Reports: Hx Contacts or Glasses - GLASSES Psychiatric History: Reports: Hx Anxiety - ON MED, Hx Depression - ON MED - Cancer History Cancer Type, Location and Year: PANCREATIC CA - Surgical History Surgery Procedure, Year, and Place: 1991 BILATERAL INGUINAL HERNIA REPAIR - [facility]. 1997 APPENDECTOMY - [place]. 11/2016 LEFT KIDNEY STONR STENT INSERTION. huiv positive Hx Anesthesia Reactions: No Infectious Disease History: No Infectious Disease History: Reports: Hx Hepatitis - HEP B OVER 30 YRS AGO, [place]LA REPORTS CLEARED TO PT Denies: Hx Clostridium Difficile, Hx Human Immunodeficiency Virus (HIV), Hx of Known/Suspected MRSA, Hx Shingles, Hx Tuberculosis, Hx Known/Suspected VRE, Hx Known/Suspected VRSA, History Other Infectious Disease, Traveled Outside the [place] in Last 30 Days - Family History Known Family History: Positive: Cardiac Disease - [place] ( father), "heart problems" (mother), Respiratory Disease - COPD (MOTHER), Blood Disorder - LEUKEMIA (BROTHER), Other - COLON CANCER (FATHER) - Social History Alcohol Use: None Alcohol Amount: no drinking in over a year. Every tuesday small amt of wine Substance Use Type: Reports: None Hx Tobacco Use: Yes Smoking Status (MU): Current Every Day Smoker Type: Cigarettes Amount Used/How Often: 1.5 PPD FOR 49 YEARS Length of Time of Smoking/Using Tobacco: 49 YRS Have You Smoked in the Last Year: Yes Review of Systems Negative: Fever Negative: Chest Pain Negative: Shortness Of Breath Positive: Abdominal Pain, Vomiting, Nausea. Negative: Diarrhea All Other Systems Reviewed And Are Negative: Yes Physical Exam - Summary Physical Exam Summary: Appearance: Well appearing, no pain distress Skin: warm, dry, reflects adequate perfusion Head/face: normal Eyes: EOMI, MALLIKA ENT: normal Neck: supple, non-tender Respiratory: CTA, breath sounds present Cardiovascular: RRR, pulses symmetrical Abdomen: Mild tenderness in RLQ, soft Bowel: present Musculoskeletal: normal, strength/ROM intact Neuro: normal, sensory motor intact, A&Ox3 Triage Information Reviewed: Yes Vital Signs On Initial Exam: Initial Vitals Temp Pulse Resp BP Pulse Ox 97.2 F 91 16 139/81 93 09/18/17 00:10 09/18/17 00:10 09/18/17 00:10 09/18/17 00:10 09/18/17 00:10 Vital Signs Reviewed: Yes Diagnostics - Vital Signs Vital Signs Temp Pulse Resp BP Pulse Ox 09/18/17 00:10 97.2 F 91 16 139/81 93 - Laboratory Lab Results: Lab Results 09/18/17 09/18/17 09/18/17 Range/Units 01:14 01:14 01:14 WBC 9.1 (3.5-10.8) 10^3/ul RBC 4.30 (4.0-5.4) 10^6/ul Hgb 14.2 (14.0-18.0) g/dl Hct 43 (42-52) % MCV 99 H (80-94) fL MCH 33 H (27-31) pg MCHC 33 (31-36) g/dl RDW 15 (10.5-15) % Plt Count 113 L (150-450) 10^3/ul MPV 8 (7.4-10.4) um3 Neut % (Auto) 53.8 (38-83) % Lymph % (Auto) 27.1 (25-47) % [place] % (Auto) 15.2 H (1-9) % Eos % (Auto) 3.5 (0-6) % Baso % (Auto) 0.4 (0-2) % Absolute Neuts (auto) 4.9 (1.5-7.7) 10^3/ul Absolute Lymphs (auto) 2.5 (1.0-4.8) 10^3/ul Absolute Monos (auto) 1.4 H (0-0.8) 10^3/ul Absolute Eos (auto) 0.3 (0-0.6) 10^3/ul Absolute Basos (auto) 0 (0-0.2) 10^3/ul Absolute Nucleated RBC 0.01 10^3/ul Nucleated RBC % 0.2 INR (Anticoag Therapy) 1.00 (0.89-1.11) APTT 28.0 (26.0-36.3) seconds Sodium 136 (133-145) mmol/L Potassium 3.7 (3.5-5.0) mmol/L Chloride 102 (101-111) mmol/L Carbon Dioxide 26 (22-32) mmol/L Anion Gap 8 (2-11) mmol/L BUN 14 (6-24) mg/dL Creatinine 1.20 H (0.67-1.17) mg/dL Est GFR ( Amer) 77.7 (>60) Est GFR (Non-Af Amer) 60.4 (>60) BUN/Creatinine Ratio 11.7 (8-20) Glucose 103 H (70-100) mg/dL Lactic Acid (0.5-2.0) mmol/L Calcium 9.4 (8.6-10.3) mg/dL Total Bilirubin 0.50 (0.2-1.0) mg/dL AST 22 (13-39) U/L ALT 36 (7-52) U/L Alkaline Phosphatase 142 H (34-104) U/L Troponin I 0.01 (<0.04) ng/mL Total Protein 6.3 L (6.4-8.9) g/dL Albumin 3.9 (3.2-5.2) g/dL Globulin 2.4 (2-4) g/dL Albumin/Globulin Ratio 1.6 (1-3) Lipase 10 L (11.0-82.0) U/L 09/18/ Range/Units 01:14 WBC (3.5-10.8) 10^3/ul RBC (4.0-5.4) 10^6/ul Hgb (14.0-18.0) g/dl Hct (42-52) % MCV (80-94) fL MCH (27-31) pg MCHC (31-36) g/dl RDW (10.5-15) % Plt Count (150-450) 10^3/ul MPV (7.4-10.4) um3 Neut % (Auto) (38-83) % Lymph % (Auto) (25-47) % [place] % (Auto) (1-9) % Eos % (Auto) (0-6) % Baso % (Auto) (0-2) % Absolute Neuts (auto) (1.5-7.7) 10^3/ul Absolute Lymphs (auto) (1.0-4.8) 10^3/ul Absolute Monos (auto) (0-0.8) 10^3/ul Absolute Eos (auto) (0-0.6) 10^3/ul Absolute Basos (auto) (0-0.2) 10^3/ul Absolute Nucleated RBC 10^3/ul Nucleated RBC % INR (Anticoag Therapy) (0.89-1.11) APTT (26.0-36.3) seconds Sodium (133-145) mmol/L Potassium (3.5-5.0) mmol/L Chloride (101-111) mmol/L Carbon Dioxide (22-32) mmol/L Anion Gap (2-11) mmol/L BUN (6-24) mg/dL Creatinine (0.67-1.17) mg/dL Est GFR ( Amer) (>60) Est GFR (Non-Af Amer) (>60) BUN/Creatinine Ratio (8-20) Glucose (70-100) mg/dL Lactic Acid 1.0 (0.5-2.0) mmol/L Calcium (8.6-10.3) mg/dL Total Bilirubin (0.2-1.0) mg/dL AST (13-39) U/L ALT (7-52) U/L Alkaline Phosphatase (34-104) U/L Troponin I (<0.04) ng/mL Total Protein (6.4-8.9) g/dL Albumin (3.2-5.2) g/dL Globulin (2-4) g/dL Albumin/Globulin Ratio (1-3) Lipase (11.0-82.0) U/L Result Diagrams: 09/18/17 01:14 09/18/17 01:14 Lab Statement: Any lab studies that have been ordered have been reviewed, and results considered in the medical decision making process. - CT CTA Abd/Pel CT Interpretation: Positive (See Comments) - Possible diarrheal illness. Persistent pneumobilia and pancreatic duct dilation without a discrete pancreatic mass visualized. Resolution of previously noted pancreatic inflammation. ED physician has reviewed this report and agrees. CT Interpretation Completed By: Radiologist Abdominal Pain Fem Course/Dx - Course Assessment/Plan: Pt is a 67 y/o M with a Hx of pancreatic cancer c/o R-sided abdominal pain, nausea, and vomiting. He was given IV fluids, morphine, and Zofran. Bloodwork was obtained. CTA Abd/Pel shows Possible diarrheal illness. Persistent pneumobilia and pancreatic duct dilation without a discrete pancreatic mass visualized. Resolution of previously noted pancreatic inflammation. The patient is diagnosed with abd pain and history of pancreatic cancer. The patient was instructed to follow up with primary care. Patient is agreeable with this plan. - Diagnoses Differential Diagnosis/HQI/PQRI: Appendicitis, Bowel Obstruction, Diverticulitis , Gall Bladder Disease, Ischemic Bowel, Peptic Ulcer Disease, Renal Colic, Ureteral Stone, Urinary Tract Infection Provider Diagnoses: Abdominal pain, History of pancreatic cancer Discharge - Discharge Plan Condition: Stable Disposition: HOME Patient Education Materials: Abdominal Pain (ED) Referrals: Wes Guzman MD [Primary Care Provider] - 3 Days Additional Instructions: PLEASE MAKE AN APPOINTMENT TO SEE YOUR PRIMARY CARE DOCTOR TO BE SEEN WITHIN 1 WEEK. PLEASE RETURN TO THE ED FOR ANY WORSENING OR CONCERNING SYMPTOMS. The documentation as recorded by the Abril gant Thomas accurately reflects the service I personally performed and the decisions made by Angy ponce Emmanuel.
--- NOTE | 2017-09-18 09:03 | RAD ---
INDICATION: Abdominal pain, tenderness, pancreatic cancer. COMPARISON: Comparison is made with a prior CT of the abdomen and pelvis from August 03, 2017. TECHNIQUE: A CT angiogram of the abdomen and pelvis was performed with intravenous contrast following intravenous injection of 100 ml of Visipaque 320 nonionic contrast. Contiguous axial sections were obtained from the lung bases through the symphysis pubis. Images were reconstructed in the coronal and sagittal planes and in a 3-D volume rendered reformatted. FINDINGS: CT OF THE ABDOMEN AND PELVIS: There is mild dependent bilateral lower lobe subsegmental atelectasis. No pleural effusion is seen. The liver and spleen are normal in size without significant focal abnormality. There is pneumobilia present which is unchanged. There is also air within the gallbladder. No gallbladder wall thickening is noted. There is a biliary stent in place which appears unchanged in position. There is pancreatic ductal distention present which is unchanged. There is a cystic lesion present within the pancreatic neck measuring 2.0 x 1.0 cm in size which is unchanged. There is been interval resolution of the previous pancreatic inflammation. The kidneys and adrenal glands are normal in size. No hydronephrosis is seen. There are small bilateral renal cysts present. No significant enlarged retroperitoneal or mesenteric lymph nodes are seen. The stomach, small and large bowel appear nondistended. There is fluid within the colon suggesting the possibility of a diarrheal illness. No wall thickening is present. No free intraperitoneal air or fluid is seen. No significant focal osseous abnormality is seen. CT ANGIOGRAM OF THE ABDOMINAL AORTA: The abdominal aorta is normal in caliber. There is mild calcific plaque present. The superior, inferior mesenteric and celiac arteries appear patent without evidence for hemodynamically significant stenosis or occlusion. There is a single right renal artery and 2 left renal arteries. There is mild calcific plaque present. No hemodynamically significant stenosis is seen. IMPRESSION: 1. CYSTIC LESION WITHIN THE PANCREATIC NECK AND PANCREATIC DUCTAL DISTENTION, UNCHANGED. 2. INTERVAL RESOLUTION OF PANCREATIC INFLAMMATORY CHANGE. 3. PNEUMOBILIA, BILIARY STENT IN PLACE, UNCHANGED. 4. POSSIBLE DIARRHEAL ILLNESS.
== END 2017-09-18 03:46 | disposition home or self-care (01) ==
LOC: ED 00:07
DX: R10.9 Unspecified abdominal pain (principal); Z85.46 Personal history of malignant neoplasm of prostate; I10 Essential (primary) hypertension; J44.9 Chronic obstructive pulmonary disease, unspecified; G47.30 Sleep apnea, unspecified; K21.9 Gastro-esophageal reflux disease without esophagitis; Z87.442 Personal history of urinary calculi; F41.9 Anxiety disorder, unspecified; F32.9 Major depressive disorder, single episode, unspecified; F17.210 Nicotine dependence, cigarettes, uncomplicated
CPT/HCPCS: 36415; 74174; 80053; 83605; 83690; 84484; 85025; 85610; 85730; 93005; 96360; 96374; 96375; 99284; J2270; J2405; Q9967

== ENCOUNTER 2017-09-24 14:24 | Emergency (ER) | payer MEDICARE ==
[2017-09-24] MEDS ORDERED: Morphine INJ* 4 MG/ML 1 ML CARPUJECT IV ONE ×2 (15:07→16:29)
[2017-09-24] MEDS ORDERED: Orphenadrine Citrate IV* 30 MG/ML 2 ML VIAL IV ONE (15:07)
[2017-09-24] MEDS ORDERED: Dexamethasone IV* 4 MG/ML 1 ML (4 MG) IV SLOW PU ONE (15:11)
--- NOTE | 2017-09-24 16:11 | RAD ---
INDICATION: Thoracic spine pain in a patient with a history of pancreatic cancer COMPARISON: CT chest July 14, 2017 TECHNIQUE: Axial source images of the thoracic spine were acquired with coronal and sagittal reformatting. FINDINGS: The thoracic vertebrae are normally aligned. The vertebral body heights are preserved. Multilevel degenerative changes include loss of intervertebral disc height as well as anterior marginal osteophyte formation. There is no fracture or focal bony lesion. The canal and foramina appear adequately patent. The prevertebral soft tissues appear normal. The visualized soft tissue elements of the thorax and upper abdomen are normal. The visualized lungs are clear. IMPRESSION: Multilevel degenerative changes of the thoracic spine similar to images acquired on July 14, 2017 CT of the chest.
--- NOTE | 2017-09-24 16:18 | ED ---
Back Pain - HPI Summary HPI Summary: 67M presents with back pain for 2 days. The pain started under his right shoulder pain and then traveled to his left. He states last night he had generalized pain but today it is just his upper back. He denies any numbness or tingling. He denies any weakness. He denies any neuro symptoms. He denies any fever. He denies any chest pain or SOB. He denies any nausea or vomiting. He has pancreatic CA with next chemo treatment on Tuesday. He denies any loss of bowel or bladder. He denies any saddle anasethesia. He took flexeril, tramadol and oxy without relief. He states the pain feels like muscle spasms. - History of Current Complaint Chief Complaint: EDBackInjuryEddin Stated Complaint: BACK PAIN Time Seen by Provider: 09/24/17 14:59 Pain Intensity: 9 - Allergies/Home Medications Allergies/Adverse Reactions: Allergies Allergy/AdvReac Type Severity Reaction Status Date / Time No Known Allergies Allergy Verified 09/24/17 14:32 PMH/Surg Hx/FS Hx/Imm Hx Endocrine/Hematology History: Denies: Hx Diabetes Cardiovascular History: Reports: Hx Hypertension - ON MED Respiratory History: Reports: Hx Chronic Obstructive Pulmonary Disease (COPD) - NOTED 08/2016, Hx Sleep Apnea - WORK UP 5-6 WEEKS AGO, AWAITING RESULTS, Other Respiratory Problems/Disorders - POSSIBLE SLEEP APNEA Denies: Hx Asthma GI History: Reports: Hx Gastroesophageal Reflux Disease - ON MED, Hx Hiatal Hernia, Other GI Disorders - pancreatic CA History: Reports: Hx Kidney Stones - CURRENTLY AND HX OF APRIL 2016,LEFT STENT 12/13/16 Denies: Hx Dialysis, Hx Renal Disease Sensory History: Reports: Hx Contacts or Glasses - GLASSES Denies: Hx Hearing Aid Opthamlomology History: Reports: Hx Contacts or Glasses - GLASSES Psychiatric History: Reports: Hx Anxiety - ON MED, Hx Depression - ON MED - Cancer History Cancer Type, Location and Year: PANCREATIC CA - Surgical History Surgery Procedure, Year, and Place: 1991 BILATERAL INGUINAL HERNIA REPAIR - [facility]. 1997 APPENDECTOMY - [place]. 11/2016 LEFT KIDNEY STONR STENT INSERTION. huiv positive Hx Anesthesia Reactions: No Infectious Disease History: No Infectious Disease History: Reports: Hx Hepatitis - HEP B OVER 30 YRS AGO, [facility]LA REPORTS CLEARED TO PT Denies: Hx Clostridium Difficile, Hx Human Immunodeficiency Virus (HIV), Hx of Known/Suspected MRSA, Hx Shingles, Hx Tuberculosis, Hx Known/Suspected VRE, Hx Known/Suspected VRSA, History Other Infectious Disease, Traveled Outside the [place] in Last 30 Days - Family History Known Family History: Positive: Cardiac Disease - [place] ( father), "heart problems" (mother), Respiratory Disease - COPD (MOTHER), Blood Disorder - LEUKEMIA (BROTHER), Other - COLON CANCER (FATHER) - Social History Alcohol Use: None Alcohol Amount: no drinking in over a year. Every tuesday small amt of wine Substance Use Type: Reports: None, Prescribed Hx Tobacco Use: Yes Smoking Status (MU): Current Every Day Smoker Type: Cigarettes Amount Used/How Often: 1.5 PPD FOR 49 YEARS Length of Time of Smoking/Using Tobacco: 49 YRS Have You Smoked in the Last Year: Yes Review of Systems Negative: Fever Negative: Chest Pain Negative: Shortness Of Breath Positive: Myalgia - thoracic back pain All Other Systems Reviewed And Are Negative: Yes Physical Exam Triage Information Reviewed: Yes Vital Signs On Initial Exam: Initial Vitals Temp Pulse Resp BP Pulse Ox 97.8 F 80 16 139/80 98 09/24/17 14:27 09/24/17 14:27 09/24/17 14:27 09/24/17 14:27 09/24/17 14:27 Vital Signs Reviewed: Yes Appearance: Positive: Pain Distress Skin: Positive: Warm, Dry Head/Face: Positive: Normal Head/Face Inspection Eyes: Positive: Normal, Conjunctiva Clear Respiratory/Lung Sounds: Positive: Clear to Auscultation, Breath Sounds Present Cardiovascular: Positive: Normal, RRR Musculoskeletal: Positive: Strength/ROM Intact - back, Other - tenderness greatest over left trapezius, good strength upper and lower extremities. no midline tenderness back. Neurological: Positive: Sensory/Motor Intact, Reflexes Intact - biceps Psychiatric: Positive: Normal - Elena Coma Scale Coma Scale Total: 15 Diagnostics - Vital Signs Vital Signs Temp Pulse Resp BP Pulse Ox 09/24/17 15:43 22 09/24/17 14:27 97.8 F 80 16 139/80 98 - Laboratory Lab Statement: Any lab studies that have been ordered have been reviewed, and results considered in the medical decision making process. - CT thoracic CT Interpretation: No Acute Changes - IMPRESSION: Multilevel degenerative changes of the thoracic spine similar to images acquired on July 14, 2017 CT of the chest. CT Interpretation Completed By: Radiologist Re-Evaluation - Re-Evaluation First Eval Re-Evaluation Time: 16:34 Change: Improved Comment: feeling better after morphine, norflex, and steriod Back Pain Course/Dx - Course Course Of Treatment: 67M presents with back pain for 2 days. The pain started under his right shoulder pain and then traveled to his left. He states last night he had generalized pain but today it is just his upper back. He denies any numbness or tingling. He denies any weakness. He denies any neuro symptoms. He denies any fever. He denies any chest pain or SOB. He denies any nausea or vomiting. He has pancreatic CA with next chemo treatment on Tuesday. He denies any loss of bowel or bladder. He denies any saddle anasethesia. He took flexeril, tramadol and oxy without relief. He states the pain feels like muscle spasms. on exam tenderness greatest over left trapezius muscle. biceps intact. neurovascular intact. no midline tenderness back. got CT due to history of pancreatic CA. Ct abd had last week so will not repeat but will get thoracic. no neck pain so did not get CT there. treated with decadron , norflex and morphine. feeling better. CT just degenerative changes. feeling better with pain medication. explained can not give stronger pain medication out of ED but patient will follow up with oncology on tuesday. will switch to robaxin instead of flexeril as tends to work better. will also do lidocaine patches. told if develops any neuro symptoms to return as may need MRI. patient understand and agees with plan. - Diagnoses Differential Diagnosis/HQI/PQRI: Positive: Epidural Abscess, Herniated Disc, Neoplasm, Sprain Provider Diagnoses: Thoracic back pain Discharge - Discharge Plan Condition: Good Disposition: HOME Prescriptions: Lidocaine PATCH 5%* [Lidoderm 5% Patch*] 1 patch TRANSDERM DAILY #6 patch Methocarbamol [Robaxin-750 MG TAB] 750 mg PO TID PRN #15 tab PRN Reason: Spasms Patient Education Materials: Back Pain (ED) Referrals: Wes Guzman MD [Primary Care Provider] - Additional Instructions: Take muscle relaxers three times a day, stop flexeril Apply lidocaine patches to area for up to 12 hours in one 24 hour period Use Tylenol for pain every 6 hours and other pain medication as prescribed ice/heat area, move as much as possible Follow up with primary within 5 days Return to ED if develop any new or worsening symptoms
[2017-09-24] MEDS ORDERED: Lidocaine PATCH 5%* 1 PATCH TRANSDERM ONE (16:31)
[2017-09-24 16:54] VITALS: BP 153/80
== END 2017-09-24 16:56 | disposition home or self-care (01) ==
LOC: ED 14:24
DX: M54.6 Pain in thoracic spine (principal); C25.9 Malignant neoplasm of pancreas, unspecified; F41.9 Anxiety disorder, unspecified; F32.9 Major depressive disorder, single episode, unspecified; F17.210 Nicotine dependence, cigarettes, uncomplicated; I10 Essential (primary) hypertension; J44.9 Chronic obstructive pulmonary disease, unspecified; K21.9 Gastro-esophageal reflux disease without esophagitis; Z87.442 Personal history of urinary calculi
CPT/HCPCS: 72128; 96374; 96375; 96376; 99282; A9270-GY; J1100; J2270; J2360

== ENCOUNTER 2018-04-02 15:34 | Emergency (ER) | payer MEDICARE ==
[2018-04-02 17:25] VITALS: BP 138/74
--- NOTE | 2018-04-02 19:30 | RAD ---
INDICATION: Constipation COMPARISON: Abdominal x-ray June 23, 2017 TECHNIQUE: Supine and upright views of the abdomen were obtained. FINDINGS: A stent overlying the right upper quadrant is presumably located at the common bile duct. In the supine position there are air-filled loops of transverse and descending colon. On the standing films there are air-fluid levels seen in the colon as well as scattered air-fluid levels in the small bowel. There is a paucity of gas and stool overlying the rectum. There is no evidence of free intraperitoneal gas. IMPRESSION: Although the bowel is not pathologically dilated, the presence of air-fluid levels on the upright film and possibility of gas and stool overlying the rectum indicates dysmotility and/or obstruction.
[2018-04-02] MEDS ORDERED: CMCS: Methylnaltrexone SQ (NF) 12 MG/0.6 ML VIAL SUBCUT ONE (19:38)
[2018-04-02 19:55] LABS: ABS Basophils 0 10^3/ul (0-0.2); ABS Eosinophils 0.1 10^3/ul (0-0.6); ABS Lymphocytes 1.8 10^3/ul (1.0-4.8); ABS Monocytes 0.7 10^3/ul (0-0.8); ABS Neutrophils 4.1 10^3/ul (1.5-7.7); ABS Nucleated RBC 0 10^3/ul; Eosinophil % 2.1 % (0-6); Hematocrit 38 % (42-52); Hemoglobin 12.7 g/dl (14.0-18.0); Lymphocyte % 27.2 % (25-47); Mean Corpuscular HGB Conc 34 g/dl (31-36); Mean Corpuscular Hemoglobin 31 pg (27-31); Mean Corpuscular Volume 93 fL (80-94); Mean Platelet Volume 7.5 um3 (7.4-10.4); Nucleated Red Blood Cells % 0.1; Platelet Count 102 10^3/ul (150-450); Red Blood Count 4.09 10^6/ul (4.0-5.4); Red Cell Distribution Width 17 % (10.5-15); White Blood Count 6.8 10^3/ul (3.5-10.8)
[2018-04-02 20:07] LABS: EGFR Non-African American 66.6 (>60)
[2018-04-02] MEDS ORDERED: Bisacodyl SUPP* 10 MG SUPP PR ONE (20:14)
[2018-04-02] MEDS ORDERED: Bisacodyl SUPP* 10 MG SUPP ONE (20:16)
--- NOTE | 2018-04-02 20:21 | ED ---
Ab Malhotra Rebecca, scribed for Ariel Lopez MD on 04/02/18 at 1951 . Abdominal Pain/Male - HPI Summary HPI Summary: Pt is a 68 y/o M who presents to ED c/o constipation for 4 days. Sx unchanged by an enema yesterday and lactulose 30 mg. Additionally c/o diffuse, moderate abdominal pain ranked 5/10. Denies vomiting. Currently has pancreatic CA for which he takes morphine (30 mg) and oxycodone, each of which he has taken 1 of today. - History of Current Complaint Chief Complaint: EDAbdPain Stated Complaint: CONSTIPATION Time Seen by Provider: 04/02/18 19:10 Hx Obtained From: Patient Onset/Duration: Still Present Severity Currently: Moderate Pain Intensity: 5 Pain Scale Used: 0-10 Numeric Location: Diffuse Aggravating Factor(s): Nothing Alleviating Factor(s): Nothing Associated Signs And Symptoms: Positive: Constipation. Negative: Vomiting - Allergies/Home Medications Allergies/Adverse Reactions: Allergies Allergy/AdvReac Type Severity Reaction Status Date / Time No Known Allergies Allergy Verified 04/02/18 15:43 PMH/Surg Hx/FS Hx/Imm Hx Endocrine/Hematology History: Denies: Hx Diabetes Cardiovascular History: Reports: Hx Hypertension - ON MED Denies: Hx Pacemaker/ICD Respiratory History: Reports: Hx Chronic Obstructive Pulmonary Disease (COPD) - NOTED 08/2016, Hx Sleep Apnea - WORK UP 5-6 WEEKS AGO, AWAITING RESULTS, Other Respiratory Problems/Disorders - POSSIBLE SLEEP APNEA Denies: Hx Asthma GI History: Reports: Hx Gastroesophageal Reflux Disease - ON MED, Hx Hiatal Hernia, Other GI Disorders - pancreatic CA History: Reports: Hx Kidney Stones - CURRENTLY AND HX OF APRIL 2016,LEFT STENT 12/13/16 Denies: Hx Dialysis, Hx Renal Disease Sensory History: Reports: Hx Contacts or Glasses - GLASSES Denies: Hx Hearing Aid Opthamlomology History: Reports: Hx Contacts or Glasses - GLASSES Psychiatric History: Reports: Hx Anxiety - ON MED, Hx Depression - ON MED Denies: Hx Panic Disorder - Cancer History Cancer Type, Location and Year: PANCREATIC CA Hx Chemotherapy: Yes Hx Radiation Therapy: No - Surgical History Surgery Procedure, Year, and Place: 1991 B[facility]ATER[facility] 1997 APPENDECTOMY - [place]. 11/2016 LEFT KIDNEY STONE STENT INSERTION Hx Anesthesia Reactions: No Infectious Disease History: No Infectious Disease History: Reports: Hx Hepatitis - HEP B OVER 30 YRS AGO, [facility] REPORTS CLEARED TO PT Denies: Hx Clostridium Difficile, Hx Human Immunodeficiency Virus (HIV), Hx of Known/Suspected MRSA, Hx Shingles, Hx Tuberculosis, Hx Known/Suspected VRE, Hx Known/Suspected VRSA, History Other Infectious Disease, Traveled Outside the [place] in Last 30 Days - Family History Known Family History: Positive: Cardiac Disease - [place] ( father), "heart problems" (mother), Respiratory Disease - COPD (MOTHER), Blood Disorder - LEUKEMIA (BROTHER), Other - COLON CANCER (FATHER) - Social History Alcohol Use: None Alcohol Amount: no drinking in over a year. Every tuesday small amt of wine Substance Use Type: Reports: None Hx Tobacco Use: Yes Smoking Status (MU): Current Every Day Smoker Type: Cigarettes Amount Used/How Often: 1.5 PPD FOR 49 YEARS Length of Time of Smoking/Using Tobacco: 49 YRS Have You Smoked in the Last Year: Yes Review of Systems Negative: Fever Positive: Abdominal Pain, Other - Constipation. Negative: Vomiting All Other Systems Reviewed And Are Negative: Yes Physical Exam - Summary Physical Exam Summary: VITAL SIGNS: Reviewed. GENERAL: ~Patient is a well-developed and nourished male who is lying comfortable in the stretcher. Patient is not in any acute respiratory distress. HEAD AND FACE: No signs of trauma. No ecchymosis, hematomas or skull depressions. No sinus tenderness. EYES: PERRLA, EOMI x 2, No injected conjunctiva, no nystagmus. EARS: Hearing grossly intact. Ear canals and tympanic membranes are within normal limits. MOUTH: Oropharynx within normal limits. NECK: Supple, trachea is midline, no adenopathy, no JVD, no carotid bruit, no c- spine tenderness, neck with full ROM. CHEST: Symmetric, no tenderness at palpation LUNGS: Clear to auscultation bilaterally. No wheezing or crackles. CVS: Regular rate and rhythm, S1 and S2 present, no murmurs or gallops appreciated. ABDOMEN: Soft, non-tender. Distended. No rebound no guarding, and no masses palpated. Hyperactive bowel sounds. EXTREMITIES: FROM in all major joints, no edema, no cyanosis or clubbing. NEURO: Alert and oriented x 3. No acute neurological deficits. Speech is normal and follows commands. SKIN: Dry and warm Triage Information Reviewed: Yes Vital Signs On Initial Exam: Initial Vitals Temp Pulse Resp BP Pulse Ox 98.3 F 80 17 138/80 97 04/02/18 15:39 04/02/18 15:39 04/02/18 15:39 04/02/18 15:39 04/02/18 15:39 Vital Signs Reviewed: Yes Diagnostics - Vital Signs Vital Signs Temp Pulse Resp BP Pulse Ox 04/02/18 17:23 98.2 F 95 16 138/74 96 04/02/18 15:39 98.3 F 80 17 138/80 97 - Laboratory Result Diagrams: 04/02/18 19:44 04/02/18 19:44 Lab Statement: Any lab studies that have been ordered have been reviewed, and results considered in the medical decision making process. - Radiology Abd XR Radiology Interpretation Completed By: Radiologist - Although the bowel is not pathologically dilated, the presence of air-fluid levels on the upright film and possibility of gas and stool overlying the rectum indicates dysmotility and/ or obstruction. ED physician reviewed this report. Re-Evaluation - Re-Evaluation First Eval Re-Evaluation Time: 20:12 Comment: He received Dulcolax and Relistor and does not want to wait, stating that he wants to leave. Abdominal Pain Fem Course/Dx - Course Assessment/Plan: Pt is a 68 y/o M who presents to ED c/o constipation for 4 days , unchanged by an enema yesterday and lactulose 30 mg. Additionally c/o diffuse , moderate abdominal pain ranked 5/10. Denies vomiting. Currently has pancreatic CA for which he takes morphine (30 mg) and oxycodone, each of which he has taken 1 of today. He received Dulcolax and Relistor and does not want to wait, stating that he wants to leave. Lab results are essentially unremarkable, electrolytes are fine, CRP is elevated which is his baseline. The pt will be D/ C with Dx of constipation with a follow up with Dr. Coello. - Diagnoses Provider Diagnoses: Constipation Discharge - Sign-Out/Discharge Documenting (check all that apply): Discharge/Admit/Transfer - Discharge - Discharge Plan Condition: Stable Disposition: HOME Patient Education Materials: Constipation (ED) Referrals: Wes Guzman MD [Primary Care Provider] - 3 Days Danny Coello MD [Medical Doctor] - 3 Days Additional Instructions: RETURN TO ED FOR ANY NEW OR WORSENING SYMPTOMS. The documentation as recorded by the Ab gant Rebecca accurately reflects the service I personally performed and the decisions made by , Ariel Lopez MD.
== END 2018-04-02 20:33 | disposition home or self-care (01) ==
LOC: ED 15:34
DX: K59.00 Constipation, unspecified (principal); I10 Essential (primary) hypertension; K21.9 Gastro-esophageal reflux disease without esophagitis; F41.8 Other specified anxiety disorders; F17.210 Nicotine dependence, cigarettes, uncomplicated; Z79.899 Other long term (current) drug therapy; Z87.442 Personal history of urinary calculi; Z85.07 Personal history of malignant neoplasm of pancreas; Z92.21 Personal history of antineoplastic chemotherapy; Z92.3 Personal history of irradiation; Z86.19 Personal history of other infectious and parasitic diseases
CPT/HCPCS: 36415; 74019; 80053; 85025; 86140; 96372; 99282; A9270-GY